=== PATIENT | male | born 1955 | race Caucasian/White ===

== ENCOUNTER → 2020-04-01 | Outpatient (REF) | payer BC | LOC: M LAB REF 17:36 | PROVIDERS: ATTEND Podiatrist Foot & Ankle Surgery | DX: L03.115 Cellulitis of right lower limb (principal) ==

== ENCOUNTER → 2020-04-27 | Outpatient (CLI) | payer BC ==
--- NOTE | 2020-05-14 15:12 | REP ---
BILATERAL LOWER EXTREMITY ARTERIAL ULTRASOUND CLINICAL: Diabetic ulcers. TECHNIQUE: Real-time lynch scale and color Doppler evaluation using linear high frequency transducer. FINDINGS: Examination is somewhat limited due to body habitus and significant distal lower extremity swelling bilaterally. The right lower extremity demonstrates triphasic wave patterns to the level of the tibioperoneal trunk followed by monophasic wave patterns through the posterior tibial and anterior tibial arteries along with high diastolic flow suggesting changes related to inflammatory disease/infectious process. There is no evidence for stenosis or occlusion through the right lower extremity. The left lower extremity demonstrates triphasic wave patterns along with 2:1 stenosis in the distal posterior tibial artery. VELOCITY CHART BILATERAL LOWER EXTREMITIES RIGHT (cm/s) LEFT (cm/s) Common femoral artery 125.6 162.9 Profunda 67.7 64.5 Proximal SFA 101.7 124.0 Mid SFA 97.2 99.1 Distal SFA 102.7 81.9 Popliteal artery 115.7 97.5 Proximal SHARMAINE 56.9 87.5 Tibioperoneal trunk 86.1 104.8 Proximal [employer] 48.0 29.1 Distal [employer] 28.9 64.3 Distal SHARMAINE 68.9 45.2 IMPRESSION: * Mild atheromatous changes along with significant lower extremity swelling possibly due to underlying infectious/inflammatory process. 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 MTDD
== END ==
LOC: M RAD 11:30
PROVIDERS: ATTEND Surgery
DX: E11.621 Type 2 diabetes mellitus with foot ulcer (principal); E11.610 Type 2 diabetes mellitus with diabetic neuropathic arthropathy; L97.412 Non-pressure chronic ulcer of right heel and midfoot with fat layer exposed

== ENCOUNTER 2020-11-19 10:27 | Emergency (ER) | payer BC ==
[~2020-11-19] VITALS: Ht 182.9 cm; Wt 195.4 kg
[2020-11-19] MEDS ORDERED: BOOSTRIX/ADACEL VACCINE (DIPHTH/PERTUSS/ACELL/TETANUS) 0.5ML SYR IM ONE (11:50)
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
[2020-11-19] MEDS ORDERED: DERMABOND TOPICAL SKIN ADHESIVE TOP ONE (12:50)
[2020-11-19] MEDS ORDERED: VICT18IN SC (12:51)
[2020-11-19] MEDS ORDERED: FLOM0.4C39 PO (12:51)
[2020-11-19] MEDS ORDERED: METF10004 PO (12:51)
[2020-11-19] MEDS ORDERED: LISI20TA35 PO (12:51)
[2020-11-19] MEDS ORDERED: METO50TA7 PO (12:51)
[2020-11-19] MEDS ORDERED: PRIL20TA2 PO (12:51)
[2020-11-19] MEDS ORDERED: GABA-845 PO (12:51)
[2020-11-19] MEDS ORDERED: SING10TA32 PO (12:51)
[2020-11-19] MEDS ORDERED: GABA600T4 PO (12:51)
[2020-11-19 13:08] VITALS: BP 138/78
== END 2020-11-19 13:10 | disposition home or self-care (01) ==
LOC: M ED 10:27
DX: S91.312A Laceration without foreign body, left foot, initial encounter (principal); W26.0XXA Contact with knife, initial encounter; Y92.89 Other specified places as the place of occurrence of the external cause; I10 Essential (primary) hypertension; E11.9 Type 2 diabetes mellitus without complications; E78.5 Hyperlipidemia, unspecified; G47.33 Obstructive sleep apnea (adult) (pediatric); Z79.899 Other long term (current) drug therapy; Z79.84 Long term (current) use of oral hypoglycemic drugs

== ENCOUNTER → 2022-03-16 | Outpatient (REF) | payer MEDICARE, BC ==
[~2022-03-16] MED LIST: FLOM0.4C39 PO; GABA-283 PO; GABA600T4 PO; LISI20TA35 PO; METF10004 PO; METO50TA7 PO; PRIL20TA2 PO; SING10TA32 PO; VICT18IN SC
== END ==
LOC: M SFHCWOUN 17:20
PROVIDERS: ATTEND Surgery
DX: T25.231A Burn of second degree of right toe(s) (nail), initial encounter (principal); Y92.9 Unspecified place or not applicable; Y93.9 Activity, unspecified; Y99.9 Unspecified external cause status

== ENCOUNTER → 2022-05-08 | Outpatient (CLI) | payer MEDICARE, BC | LOC: M RAD 11:51 | PROVIDERS: ATTEND Surgery | DX: L97.512 Non-pressure chronic ulcer of other part of right foot with fat layer exposed (principal); L97.522 Non-pressure chronic ulcer of other part of left foot with fat layer exposed ==

== ENCOUNTER → 2022-08-31 | Outpatient (REF) | payer MEDICARE, BC ==
[~2022-08-31] MED LIST changes: +MONT-5 PO; -SING10TA32 PO
== END ==
LOC: M SFHCWOUN 12:38
PROVIDERS: ATTEND Surgery
DX: D49.2 Neoplasm of unspecified behavior of bone, soft tissue, and skin (principal)

== ENCOUNTER → 2023-02-15 | Outpatient (REF) | payer MEDICARE, BC | LOC: M SFHCWOUN 12:26 | PROVIDERS: ATTEND Surgery | DX: C44.729 Squamous cell carcinoma of skin of left lower limb, including hip (principal) ==

== ENCOUNTER → 2023-07-26 | Outpatient (REF) | payer MEDICARE, BC ==
[~2023-07-26] MED LIST changes: -GABA-283 PO; +GABA-284 PO
== END ==
LOC: M SFHCWOUN 18:01
PROVIDERS: ATTEND Physician Assistant
DX: D04.71 Carcinoma in situ of skin of right lower limb, including hip (principal)

== ENCOUNTER → 2023-07-27 | Outpatient (CLI) | payer MEDICARE, BC | LOC: M RAD 11:36 | PROVIDERS: ATTEND Internal Medicine | DX: L02.416 Cutaneous abscess of left lower limb (principal) ==

== ENCOUNTER → 2023-08-09 | Outpatient (REF) | payer MEDICARE, BC | LOC: M SFHCWOUN 17:22 | PROVIDERS: ATTEND Physician Assistant | DX: L97.522 Non-pressure chronic ulcer of other part of left foot with fat layer exposed (principal) ==

== ENCOUNTER → 2023-08-14 | Outpatient (REF) | payer MEDICARE, BC | LOC: M SFHCDERM 17:35 | PROVIDERS: ATTEND Dermatology | DX: C44.729 Squamous cell carcinoma of skin of left lower limb, including hip (principal) ==

== ENCOUNTER → 2023-08-22 | Outpatient (REF) | payer MEDICARE, BC | LOC: M SFHCDERM 17:18 | PROVIDERS: ATTEND Dermatology | DX: Z51.89 Encounter for other specified aftercare (principal) ==

== ENCOUNTER → 2023-08-31 | Outpatient (REF) | payer MEDICARE, BC | LOC: M SFHCDERM 14:25 | PROVIDERS: ATTEND Dermatology | DX: T14.90XD Injury, unspecified, subsequent encounter (principal) ==

== ENCOUNTER → 2023-09-14 | Outpatient (CLI) | payer MEDICARE, BC | LOC: M RAD 13:05 | PROVIDERS: ATTEND Physician Assistant | DX: L97.512 Non-pressure chronic ulcer of other part of right foot with fat layer exposed (principal); L97.822 Non-pressure chronic ulcer of other part of left lower leg with fat layer exposed; R68.89 Other general symptoms and signs ==

== ENCOUNTER → 2023-10-11 | Outpatient (REF) | payer MEDICARE, BC | LOC: M SFHCDERM 13:36 | PROVIDERS: ATTEND Physician Assistant | DX: L82.1 Other seborrheic keratosis (principal) ==

== ENCOUNTER → 2023-10-19 | Outpatient (CLI) | payer MEDICARE, BC | LOC: M WUC 11:32 | PROVIDERS: ATTEND Physician Assistant | DX: L97.522 Non-pressure chronic ulcer of other part of left foot with fat layer exposed (principal); M19.072 Primary osteoarthritis, left ankle and foot; M77.8 Other enthesopathies, not elsewhere classified ==

== ENCOUNTER 2023-10-24 15:51 | Emergency (ER) | payer MEDICARE, BC ==
[~2023-10-24] VITALS: Ht 182.9 cm; Wt 164.5 kg
[2023-10-24 15:51] VITALS: BP 141/74; TEMP 97.8; O2SAT 98
[2023-10-25] MEDS ORDERED: FINA5TAB2 PO (10:27)
[2023-10-25] MEDS ORDERED: AUGM125S2 PO (10:27)
[2023-10-25] MEDS ORDERED: DULO1CAP6 PO (10:27)
[2023-10-25] MEDS ORDERED: NORV5TAB PO (10:27)
[2023-10-25] MEDS ORDERED: SEMA1PEN2 SQ (10:27)
[2023-10-25] MEDS ORDERED: OMEP-173 PO (12:40)
[2023-10-25] MEDS ORDERED: METO1TAB7 PO (12:40)
[2023-10-25] MEDS ORDERED: AMOX875T2 PO (12:47)
[2023-10-25] MEDS ORDERED: IBUP200T46 PO (12:47)
[2023-10-25] MEDS ORDERED: VENTAER INH (12:47)
[2023-10-25] MEDS ORDERED: ARTIDRO4 OU (12:47)
[2023-10-25] MEDS ORDERED: FLUT50SP33 (12:47)
== END 2023-10-24 17:17 | disposition left against medical advice (07) ==
LOC: M ED 15:51
DX: Z53.21 Procedure and treatment not carried out due to patient leaving prior to being seen by health care provider (principal)

== ENCOUNTER 2023-10-25 10:10 | Observation (INO) | payer MEDICARE, BC ==
[~2023-10-25] VITALS: Ht 182.9 cm; Wt 166.4 kg
[~2023-10-25 10:10] MED LIST changes: -AMOX875T2 PO; -ARTIDRO4 OU; -AUGM125S2 PO; -CEFA500C2 PO; -DULO1CAP6 PO; -FINA5TAB2 PO; -FLUT50SP33; -IBUP200T46 PO; -METO1TAB7 PO; -NORV5TAB PO; -OMEP-173 PO; -PROBCAP14 PO; -SEMA1PEN2 SQ; -VENTAER INH
[2023-10-25] MEDS ORDERED: AUGM125S2 PO (10:27)
[2023-10-25] MEDS ORDERED: NORV5TAB PO (10:27)
[2023-10-25] MEDS ORDERED: DULO1CAP6 PO (10:27)
[2023-10-25] MEDS ORDERED: SEMA1PEN2 SQ (10:27)
[2023-10-25] MEDS ORDERED: FINA5TAB2 PO (10:27)
[2023-10-25] MEDS ORDERED: VANCOMYCIN HCL 2,000 MG in D5W 500 ML IV ONE (11:30)
[2023-10-25] MEDS ORDERED: MED REC IN PROGRESS XX SCH (11:55)
[2023-10-25] MEDS: VANCOMYCIN HCL 1,000 MG, VIAL MATE ADAPTER 1 EACH in D5W 250 ML IV ONE ×2 (12:33)
[2023-10-25] MEDS: BOOSTRIX VACCINE (TETANUS/DIPHTH/ACEL. PERTUSSIS) 0.5ML SYR IM.IMMUN ONE (12:33)
[2023-10-25] MEDS ORDERED: OMEP-173 PO (12:40)
[2023-10-25] MEDS ORDERED: METO1TAB7 PO (12:40)
[2023-10-25] MEDS ORDERED: ARTIDRO4 OU (12:47)
[2023-10-25] MEDS ORDERED: IBUP200T46 PO (12:47)
[2023-10-25] MEDS ORDERED: VENTAER INH (12:47)
[2023-10-25] MEDS ORDERED: AMOX875T2 PO (12:47)
[2023-10-25] MEDS ORDERED: FLUT50SP33 (12:47)
[2023-10-25 12:48] LABS: BASO % 0.1 % (0.0-1.0); EOS % 0.1 % (0.0-3.0); HEMATOCRIT 30.4 % (42.0-52.0); HEMOGLOBIN 9.7 g/dl (13.5-17.5); LYMPH # 1.3 10^3/uL (1.5-5.0); LYMPH % 17.9 % (24.0-44.0); MEAN CORPUSCULAR HEMOGLOBIN 30.1 pg (27.0-33.0); MEAN CORPUSCULAR HGB CONC 31.9 g/dl (32.0-36.5); MEAN CORPUSCULAR VOLUME 94.4 fl (80.0-96.0); MONO # 1.6 10^3/uL (0.0-0.8); MONO % 23.4 % (2.0-8.0); NEUTROPHILS % 56.8 % (36.0-66.0); PLATELET COUNT, AUTOMATED 192 10^3/uL (150-450); RED BLOOD COUNT 3.22 10^6/uL (4.30-6.10)
[2023-10-25] MEDS ORDERED: HOME MED LIST COMPLETE! XX SCH (12:50)
[2023-10-25 13:01] LABS: INR 1.24; PROTHROMBIN TIME 15.2 SECONDS (12.5-14.5)
[2023-10-25 13:02] LABS: ERYTHROCYTE SEDIMENTATION RATE 76 mm/hr (0-20)
[2023-10-25 13:11] LABS: ALBUMIN 2.1 G/DL (3.2-5.2); ALKALINE PHOSPHATASE 86 U/L (46-116); ALT/SGPT 17 U/L (7.0-40); AST/SGOT 22 U/L (<34); BILIRUBIN,DIRECT 0.4 MG/DL (<0.4); BILIRUBIN,TOTAL 0.7 MG/DL (0.3-1.2); BLOOD UREA NITROGEN 21 MG/DL (9-23); CALCIUM LEVEL 7.9 MG/DL (8.3-10.6); CARBON DIOXIDE LEVEL 29 MMOL/L (20-31); CHLORIDE LEVEL 98 MMOL/L (98-107); CREATININE FOR GFR 0.72 MG/DL (0.70-1.30); GLOMERULAR FILTRATION RATE > 60.0 (>49); GLUCOSE, FASTING 111 MG/DL (74-106); POTASSIUM SERUM 3.9 MMOL/L (3.5-5.1); SODIUM LEVEL 133 MMOL/L (136-145); TOTAL PROTEIN 7.5 G/DL (5.7-8.2)
[2023-10-25 13:17] LABS: PROCALCITONIN 0.19 ng/ml
[2023-10-25 13:29] LABS: RSV AMPLIFICATION NEGATIVE (NEGATIVE)
[2023-10-25] MEDS ORDERED: VANCOMYCIN HCL 1,000 MG, VIAL MATE ADAPTER 1 EACH in D5W 250 ML IV SCH (14:00)
[2023-10-25 15:40] VITALS: BP 109/61; TEMP 97.5; O2SAT 96
[2023-10-25] MEDS: GABAPENTIN 300 MG CAP PO SCH (16:12)
[2023-10-25] MEDS ORDERED: GLUCAGON INJ 1MG VIAL SC PRN (17:35)
[2023-10-25] MEDS ORDERED: GLUCOSE 4GM CHEW TABLET PO PRN (17:35)
[2023-10-25] MEDS ORDERED: DEXTROSE 50% 50ML SYRINGE IV PRN (17:35)
[2023-10-25 20:28] VITALS: BP 98/51; TEMP 98.1; O2SAT 96
[2023-10-25] MEDS: INSULIN LISPRO (NovoLOG) PER UNIT SC SCH (20:54)
[2023-10-25] MEDS ORDERED: amLODIPine 5 MG TAB PO SCH (21:00)
[2023-10-25] MEDS: MONTELUKAST 10 MG TAB PO SCH (21:03)
[2023-10-25] MEDS: VANCOMYCIN HCL 1,000 MG, VIAL MATE ADAPTER 1 EACH in D5W 250 ML IV SCH (21:03)
[2023-10-25] MEDS: DOCUSATE SODIUM 100MG CAPSULE PO SCH (21:03)
[2023-10-25] MEDS: NS 1,000 ML IV SCH (21:03)
[2023-10-25] MEDS: TAMSULOSIN 0.4 MG CAP PO SCH (21:03)
[2023-10-25 22:00] VITALS: O2SAT 93
[2023-10-25 23:00] VITALS: BP 108/62
[2023-10-26] VITALS (8 sets, daily range): BP systolic 119–151; BP diastolic 55–76; TEMP 97–98.1; O2SAT 91–98
[2023-10-26 06:35] LABS: BASO % 0.2 % (0.0-1.0); EOS % 0.4 % (0.0-3.0); HEMATOCRIT 30.1 % (42.0-52.0); HEMOGLOBIN 9.9 g/dl (13.5-17.5); LYMPH # 1.3 10^3/uL (1.5-5.0); LYMPH % 25.5 % (24.0-44.0); MEAN CORPUSCULAR HGB CONC 32.9 g/dl (32.0-36.5); MEAN CORPUSCULAR VOLUME 94.4 fl (80.0-96.0); MONO # 0.9 10^3/uL (0.0-0.8); MONO % 17.7 % (2.0-8.0); NEUTROPHILS # 2.8 10^3/uL (1.5-8.5); NEUTROPHILS % 54.1 % (36.0-66.0); PLATELET COUNT, AUTOMATED 201 10^3/uL (150-450); RED BLOOD COUNT 3.19 10^6/uL (4.30-6.10); WHITE BLOOD COUNT 5.1 10^3/uL (4.0-10.0)
[2023-10-26 06:53] LABS: BLOOD UREA NITROGEN 18 MG/DL (9-23); CALCIUM LEVEL 7.6 MG/DL (8.3-10.6); CARBON DIOXIDE LEVEL 28 MMOL/L (20-31); CHLORIDE LEVEL 101 MMOL/L (98-107); CREATININE FOR GFR 0.66 MG/DL (0.70-1.30); GLOMERULAR FILTRATION RATE > 60.0 (>49); GLUCOSE, FASTING 97 MG/DL (74-106); POTASSIUM SERUM 4.2 MMOL/L (3.5-5.1); SODIUM LEVEL 133 MMOL/L (136-145)
[2023-10-26] MEDS: INSULIN LISPRO (NovoLOG) PER UNIT SC SCH (07:23)
[2023-10-26] MEDS: FINASTERIDE 5MG TAB PO SCH (07:55)
[2023-10-26] MEDS: OMEPRAZOLE 20MG CAP PO SCH (07:55)
[2023-10-26] MEDS: DULoxetine 30MG CAPSULE (CYMBALTA) PO SCH (07:56)
[2023-10-26] MEDS ORDERED: fentaNYL 100 MCG/2 ML INJECTION As Ordered ONE (11:51)
[2023-10-26] MEDS ORDERED: LIDOCAINE 2% 100MG/5ML SDV (FOR ANES.) As Ordered ONE (11:51)
[2023-10-26] MEDS ORDERED: MIDAZOLAM INJ 2MG/2ML VIAL As Ordered ONE (11:51)
[2023-10-26] MEDS ORDERED: propofoL 200 MG/20 ML VIAL As Ordered ONE (11:51)
[2023-10-26] MEDS: LIDOCAINE 1% MDV 20ML VIAL As Ordered ONE (13:00)
[2023-10-26] MEDS ORDERED: PERCOCET 5MG/325MG TAB PO PRN (18:25)
[2023-10-26] MEDS: cefTRIAXone SOD 2 GM in D5W MINI-BAG PLUS 50 ML IV SCH (20:52)
[2023-10-26] MEDS: VANCOMYCIN HCL 750 MG, VIAL MATE ADAPTER 1 EACH in D5W 250 ML IV SCH ×2 (21:00→23:23)
[2023-10-27 02:00] VITALS: BP 134/65; TEMP 98.2; O2SAT 91
[2023-10-27 05:13] VITALS: BP 130/68; TEMP 97.9; O2SAT 94
[2023-10-27 07:02] LABS: BASO % 0.2 % (0.0-1.0); EOS % 0.9 % (0.0-3.0); HEMATOCRIT 30.3 % (42.0-52.0); HEMOGLOBIN 9.7 g/dl (13.5-17.5); LYMPH # 1.2 10^3/uL (1.5-5.0); LYMPH % 26.3 % (24.0-44.0); MEAN CORPUSCULAR HEMOGLOBIN 30.6 pg (27.0-33.0); MEAN CORPUSCULAR VOLUME 95.6 fl (80.0-96.0); MONO # 0.9 10^3/uL (0.0-0.8); MONO % 20.3 % (2.0-8.0); NEUTROPHILS # 2.2 10^3/uL (1.5-8.5); NEUTROPHILS % 47.8 % (36.0-66.0); PLATELET COUNT, AUTOMATED 180 10^3/uL (150-450); RED BLOOD COUNT 3.17 10^6/uL (4.30-6.10); WHITE BLOOD COUNT 4.5 10^3/uL (4.0-10.0)
[2023-10-27 07:09] LABS: BLOOD UREA NITROGEN 14 MG/DL (9-23); CALCIUM LEVEL 7.6 MG/DL (8.3-10.6); CARBON DIOXIDE LEVEL 28 MMOL/L (20-31); CHLORIDE LEVEL 99 MMOL/L (98-107); CREATININE FOR GFR 0.63 MG/DL (0.70-1.30); GLOMERULAR FILTRATION RATE > 60.0 (>49); GLUCOSE, FASTING 128 MG/DL (74-106); POTASSIUM SERUM 3.9 MMOL/L (3.5-5.1); SODIUM LEVEL 132 MMOL/L (136-145)
[2023-10-27 10:00] VITALS: BP 151/81; TEMP 97.7; O2SAT 91
[2023-10-27] MEDS: METOPROLOL SUCC (TopROL XL) 50MG **XL** TAB PO SCH (13:39)
[2023-10-27] MEDS: VANCOMYCIN HCL 1,000 MG, VIAL MATE ADAPTER 1 EACH in D5W 250 ML IV SCH (13:40)
[2023-10-27 14:00] VITALS: BP 119/53; TEMP 97.3; O2SAT 90
[2023-10-27] MEDS: amLODIPine 5 MG TAB PO SCH (21:40)
[2023-10-27 21:54] VITALS: BP 127/68; TEMP 97.7; O2SAT 95
[2023-10-28 05:16] VITALS: BP 132/72; TEMP 97.8; O2SAT 95
[2023-10-28 06:46] LABS: BASO % 0.4 % (0.0-1.0); EOS # 0.1 10^3/uL (0.0-0.5); HEMATOCRIT 31.4 % (42.0-52.0); HEMOGLOBIN 9.8 g/dl (13.5-17.5); LYMPH # 1.3 10^3/uL (1.5-5.0); LYMPH % 29.3 % (24.0-44.0); MEAN CORPUSCULAR HGB CONC 31.2 g/dl (32.0-36.5); MONO # 0.9 10^3/uL (0.0-0.8); NEUTROPHILS % 44.4 % (36.0-66.0); PLATELET COUNT, AUTOMATED 182 10^3/uL (150-450); RED BLOOD COUNT 3.27 10^6/uL (4.30-6.10); WHITE BLOOD COUNT 4.5 10^3/uL (4.0-10.0)
[2023-10-28 07:05] LABS: BLOOD UREA NITROGEN 15 MG/DL (9-23); CALCIUM LEVEL 7.9 MG/DL (8.3-10.6); CARBON DIOXIDE LEVEL 29 MMOL/L (20-31); CHLORIDE LEVEL 102 MMOL/L (98-107); GLOMERULAR FILTRATION RATE > 60.0 (>49); GLUCOSE, FASTING 124 MG/DL (74-106); SODIUM LEVEL 136 MMOL/L (136-145)
[2023-10-28] MEDS: ceFAZolin SOD 2 GM in IV 1 EA IV SCH (08:16)
[2023-10-28 14:00] VITALS: BP 120/68; TEMP 97.9; O2SAT 98
[2023-10-28 21:21] VITALS: BP 133/68; TEMP 97.9; O2SAT 95
[2023-10-29 05:51] VITALS: BP 134/70; TEMP 97.3; O2SAT 92
[2023-10-29 06:30] LABS: HEMATOCRIT 34.7 % (42.0-52.0); HEMOGLOBIN 10.9 g/dl (13.5-17.5); MEAN CORPUSCULAR HEMOGLOBIN 30.1 pg (27.0-33.0); MEAN CORPUSCULAR HGB CONC 31.4 g/dl (32.0-36.5); MEAN CORPUSCULAR VOLUME 95.9 fl (80.0-96.0); PLATELET COUNT, AUTOMATED 262 10^3/uL (150-450); RED BLOOD COUNT 3.62 10^6/uL (4.30-6.10); WHITE BLOOD COUNT 5.3 10^3/uL (4.0-10.0)
[2023-10-29 06:58] LABS: BLOOD UREA NITROGEN 15 MG/DL (9-23); CALCIUM LEVEL 8.1 MG/DL (8.3-10.6); CARBON DIOXIDE LEVEL 30 MMOL/L (20-31); CHLORIDE LEVEL 100 MMOL/L (98-107); GLOMERULAR FILTRATION RATE > 60.0 (>49); GLUCOSE, FASTING 105 MG/DL (74-106); POTASSIUM SERUM 4.2 MMOL/L (3.5-5.1); SODIUM LEVEL 135 MMOL/L (136-145)
[2023-10-29 07:04] LABS: ATYPICAL LYMPH 4 % (0-5); EOSINOPHILS 1 % (0-3); LYMPHOCYTES 33 % (16-44); METAMYELOCYTES 2 % (0-0); MONOCYTES 12 % (0-5); NEUTROPHILS 48 % (28-66); PLATELET ESTIMATE NORMAL (NORMAL)
[2023-10-29 07:05] LABS: ANISOCYTOSIS 1+; SPHEROCYTES 1+
[2023-10-29 07:06] LABS: HYPERSEGMENTED POLYS 1+
[2023-10-29 08:21] VITALS: BP 160/88
[2023-10-29] MEDS ORDERED: CEFA500C2 PO (12:43)
[2023-10-29] MEDS ORDERED: PROBCAP14 PO (12:44)
== END 2023-10-29 14:35 | disposition home or self-care (01) ==
LOC: M ED 10:10 → M ED INP 10:11 → ENRESERV 14:48 → M MSPAV 15:38
PROVIDERS: ADMIT Internal Medicine Nephrology; ATTEND Internal Medicine Nephrology
DX: S61.001A Unspecified open wound of right thumb without damage to nail, initial encounter (principal); A49.01 Methicillin susceptible Staphylococcus aureus infection, unspecified site; X58.XXXA Exposure to other specified factors, initial encounter; Y92.89 Other specified places as the place of occurrence of the external cause; Y93.89 Activity, other specified; Y99.8 Other external cause status; R00.1 Bradycardia, unspecified; I44.0 Atrioventricular block, first degree; I10 Essential (primary) hypertension; E78.5 Hyperlipidemia, unspecified; E11.42 Type 2 diabetes mellitus with diabetic polyneuropathy; G47.30 Sleep apnea, unspecified; E66.01 Morbid (severe) obesity due to excess calories; Z68.42 Body mass index [BMI] 45.0-49.9, adult; E11.618 Type 2 diabetes mellitus with other diabetic arthropathy; Z87.891 Personal history of nicotine dependence; Z96.653 Presence of artificial knee joint, bilateral; Z85.828 Personal history of other malignant neoplasm of skin; Z84.0 Family history of diseases of the skin and subcutaneous tissue; Z82.0 Family history of epilepsy and other diseases of the nervous system; Z88.8 Allergy status to other drugs, medicaments and biological substances; Z79.899 Other long term (current) drug therapy; Z79.85 Long-term (current) use of injectable non-insulin antidiabetic drugs; Z99.3 Dependence on wheelchair; Z23 Encounter for immunization; L03.011 Cellulitis of right finger
CPT/HCPCS: 10060; 11042; 11044; 36415; 73130; 80048; 80076; 80202; 83605; 84145; 85025; 85610; 85652; 86140; 87040; 87070; 87075; 87077; 87186; 87205; 87631; 90471; 90715; 93005; 96365; 96366; 96367; 96375; 96376; 99284; G0378; J0665; J0690; J0696; J1815; J2250; J3010; J3370

== ENCOUNTER → 2023-10-25 | Outpatient (REF) | payer MEDICARE, BC ==
[~2023-10-25] MED LIST changes: +AMOX875T2 PO; +ARTIDRO4 OU; +AUGM125S2 PO; +CEFA500C2 PO; +DULO1CAP6 PO; +FINA5TAB2 PO; +FLUT50SP33; +IBUP200T46 PO; +METO1TAB7 PO; +NORV5TAB PO; +OMEP-173 PO; +PROBCAP14 PO; +SEMA1PEN2 SQ; +VENTAER INH
== END ==
LOC: M SFHCWOUN 16:10
PROVIDERS: ATTEND Physician Assistant
DX: L03.011 Cellulitis of right finger (principal)

== ENCOUNTER → 2023-11-01 | Outpatient (CLI) | payer MEDICARE, BC ==
[~2023-11-01] MED LIST changes: +AMOX875T2 PO; +ARTIDRO4 OU; +AUGM125S2 PO; +CEFA500C2 PO; +DULO1CAP6 PO; +FINA5TAB2 PO; +FLUT50SP33; +IBUP200T46 PO; +METO1TAB7 PO; +NORV5TAB PO; +OMEP-173 PO; +PROBCAP14 PO; +SEMA1PEN2 SQ; +VENTAER INH
== END ==
LOC: M SOG 11:21
PROVIDERS: ATTEND Physician Assistant
DX: L03.011 Cellulitis of right finger (principal)

== ENCOUNTER → 2024-01-08 | Day surgery (SDC) | payer MEDICARE, BC ==
[~2024-01-08] VITALS: Ht 180.3 cm; Wt 162.8 kg
[~2024-01-08] MED LIST changes: +IMIQ5CRE8 TOP; +NS 1,000 ML IV ONE; +OXYB10TA23 PO
[2024-01-08 07:22] VITALS: BP 197/95; TEMP 96.9; O2SAT 95
== END | disposition home or self-care (01) ==
LOC: M OPP 07:16
PROVIDERS: ATTEND Internal Medicine Gastroenterology
DX: R12 Heartburn (principal); Z53.8 Procedure and treatment not carried out for other reasons

== ENCOUNTER → 2024-01-21 | Outpatient (CLI) | payer MEDICARE, BC ==
[~2024-01-21] MED LIST changes: -NS 1,000 ML IV ONE
== END ==
LOC: M WUC 14:26
PROVIDERS: ATTEND Internal Medicine
DX: I51.7 Cardiomegaly (principal); R05.9 Cough, unspecified

== ENCOUNTER 2024-03-18 11:56 | Day surgery (SDC) | payer MEDICARE, BC ==
[~2024-03-18] VITALS: Ht 180.3 cm; Wt 166.5 kg
[~2024-03-18 11:56] MED LIST changes: +ACET1TAB55 PO; +META28.32 PO; +NS 1,000 ML IV ONE
[2024-03-18] MEDS ORDERED: LIDOCAINE 2% 100MG/5ML SDV (FOR ANES.) As Ordered ONE (13:15)
[2024-03-18] MEDS ORDERED: propofoL 200 MG/20 ML VIAL As Ordered ONE (13:15)
[2024-03-18] MEDS ORDERED: fentaNYL 100 MCG/2 ML INJECTION As Ordered ONE (13:35)
[2024-03-18 14:14] VITALS: TEMP 97.1
[2024-03-18 14:25] VITALS: BP 124/65; O2SAT 95
== END 2024-03-18 14:30 | disposition home or self-care (01) ==
LOC: M OPP 11:56
PROVIDERS: ATTEND Internal Medicine Gastroenterology
DX: K22.70 Barrett's esophagus without dysplasia (principal); K31.A19 Gastric intestinal metaplasia without dysplasia, unspecified site; R12 Heartburn; E11.9 Type 2 diabetes mellitus without complications; G47.30 Sleep apnea, unspecified; I10 Essential (primary) hypertension; F17.200 Nicotine dependence, unspecified, uncomplicated; Z79.1 Long term (current) use of non-steroidal anti-inflammatories (NSAID); Z79.85 Long-term (current) use of injectable non-insulin antidiabetic drugs; Z79.810 Long term (current) use of selective estrogen receptor modulators (SERMs); Z79.891 Long term (current) use of opiate analgesic; Z79.899 Other long term (current) drug therapy
CPT/HCPCS: 43239; 88305; J3010

== ENCOUNTER → 2024-04-07 | Outpatient (CLI) | payer MEDICARE, BC ==
[~2024-04-07] MED LIST changes: -NS 1,000 ML IV ONE
== END ==
LOC: M PLARAD 13:19
PROVIDERS: ATTEND Dermatology
DX: C44.391 Other specified malignant neoplasm of skin of nose (principal)
CPT/HCPCS: 78816; A9552

== ENCOUNTER → 2024-08-07 | Outpatient (REF) | payer MEDICARE, BC ==
[~2024-08-07] MED LIST changes: +GABA-1490 PO; -GABA600T4 PO
== END ==
LOC: M SFHCDERM 16:49
PROVIDERS: ATTEND Physician Assistant
DX: L03.90 Cellulitis, unspecified (principal)

== ENCOUNTER 2024-09-15 12:03 | Inpatient (IN) | payer MEDICARE, BC ==
[~2024-09-15] VITALS: Ht 180.3 cm; Wt 149.0 kg
[2024-09-15] MEDS ORDERED: VIBE75TA PO (12:19)
[2024-09-15] MEDS: ACETAMINOPHEN 500 MG TAB PO ONE (12:34)
[2024-09-15 12:43] LABS: BASO # 0.1 10^3/uL (0.0-0.2); BASO % 0.3 % (0.0-1.0); EOS % 0.1 % (0.0-3.0); HEMATOCRIT 29.9 % (42.0-52.0); HEMOGLOBIN 9.6 g/dl (13.5-17.5); LYMPH # 0.7 10^3/uL (1.5-5.0); LYMPH % 2.7 % (24.0-44.0); MEAN CORPUSCULAR HEMOGLOBIN 31.4 pg (27.0-33.0); MEAN CORPUSCULAR HGB CONC 32.1 g/dl (32.0-36.5); MEAN CORPUSCULAR VOLUME 97.7 fl (80.0-96.0); MONO % 11.1 % (2.0-8.0); NEUTROPHILS # 22.2 10^3/uL (1.5-8.5); NEUTROPHILS % 82.3 % (36.0-66.0); PLATELET COUNT, AUTOMATED 191 10^3/uL (150-450); RED BLOOD COUNT 3.06 10^6/uL (4.30-6.10); WHITE BLOOD COUNT 26.9 10^3/uL (4.0-10.0)
[2024-09-15 13:09] LABS: BILIRUBIN,DIRECT 1.8 MG/DL (<0.4); BILIRUBIN,TOTAL 2.5 MG/DL (0.3-1.2); CALCIUM LEVEL 7.5 MG/DL (8.3-10.6); CREATININE FOR GFR 1.37 MG/DL (0.70-1.30); POTASSIUM SERUM 4.7 MMOL/L (3.5-5.1); TOTAL PROTEIN 7.6 G/DL (5.7-8.2)
[2024-09-15 13:20] LABS: PROCALCITONIN 3.89 ng/ml
[2024-09-15 13:40] LABS: C REACTIVE PROTEIN QUANTITATIV 29.04 MG/DL (<1.0)
[2024-09-15] MEDS: PIPERACILLIN/TAZOBACTAM SOD 4.5 GM in DEXTROSE 5% (D5W) ADV/MINI-BAG 50 ML IV ONE (14:18)
[2024-09-15] MEDS: NS (Normal Saline) 0.9% 1,000 ML IV SCH ×2 (14:18→20:56)
[2024-09-15] MEDS ORDERED: [UNRECOGNIZED DRUG - CODE] PO (14:26)
[2024-09-15] MEDS ORDERED: SM N0.65 NARES (14:26)
[2024-09-15] MEDS ORDERED: HOME MED LIST COMPLETE! XX SCH (14:30)
[2024-09-15 14:59] LABS: KETONE, URINE AUTO RFX NEGATIVE (NEGATIVE); LEUKOCYTE ESTERASE UR AUTO RFX NEGATIVE (NEGATIVE); MUCUS, URINE RFX SMALL (NEGATIVE); NITRITE, URINE AUTO RFX NEGATIVE (NEGATIVE); RBC, URINE AUTO RFX 54 /HPF (0-3); SQUAM EPITHELIAL CELL UR AURFX 1 /HPF (0-6); WBC, URINE AUTO RFX 3 /HPF (0-3)
[2024-09-15] MEDS: VANCOMYCIN HCL 1,000 MG, VIAL MATE ADAPTER 1 EACH in NS 250 ML IV ONE (16:31)
[2024-09-15] MEDS ORDERED: KETAMINE HCL 200MG/20ML VIAL As Ordered ONE (16:54)
[2024-09-15] MEDS ORDERED: MIDAZOLAM INJ 2MG/2ML VIAL As Ordered ONE (16:54)
[2024-09-15] MEDS ORDERED: propofoL 200 MG/20 ML VIAL As Ordered ONE (16:54)
[2024-09-15] MEDS ORDERED: LIDOCAINE 2% 100MG/5ML SDV (FOR ANES.) As Ordered ONE (16:54)
[2024-09-15] MEDS ORDERED: fentaNYL 100 MCG/2 ML INJECTION As Ordered ONE (16:55)
[2024-09-15] MEDS ORDERED: ONDANSETRON 4MG 2ML VIAL As Ordered ONE (16:55)
[2024-09-15] MEDS ORDERED: ACETAMINOPHEN 325 MG TAB PO ONE (17:00)
[2024-09-15] MEDS ORDERED: MOM 30ML SUSPENSION UDC PO PRN (17:30)
[2024-09-15] MEDS ORDERED: VANCOMYCIN HCL 1,000 MG, VIAL MATE ADAPTER 1 EACH in NS 250 ML IV SCH (17:35)
[2024-09-15] MEDS ORDERED: SODIUM CHLORIDE NASAL 0.65% SPRAY BTL (OCEAN) PRN (17:50)
[2024-09-15] MEDS ORDERED: ACETAMINOPHEN 325 MG TAB PO PRN (17:50)
[2024-09-15] MEDS ORDERED: GLUCAGON INJ 1MG VIAL SC PRN (18:00)
[2024-09-15] MEDS ORDERED: INSULIN LISPRO (NovoLOG) PER UNIT SC SCH ×2 (18:00→19:35)
[2024-09-15] MEDS ORDERED: PERCOCET 5MG/325MG TAB PO PRN (18:00)
[2024-09-15] MEDS ORDERED: DEXTROSE 50% 50ML SYRINGE IV PRN (18:00)
[2024-09-15] MEDS ORDERED: GLUCOSE 4 GM CHEW PO PRN (18:00)
[2024-09-15] MEDS: LIDOCAINE 1% MDV 20ML VIAL As Ordered ONE (18:36)
[2024-09-15] MEDS ORDERED: MEPERIDINE 25 MG/ML 1ML VIAL As Ordered ONE (19:51)
[2024-09-15] MEDS: MEPERIDINE 25 MG/ML 1ML VIAL IV PRN (19:53)
[2024-09-15 20:27] VITALS: BP 136/96; TEMP 98.3; O2SAT 96
[2024-09-15] MEDS: INSULIN LISPRO (NovoLOG) PER UNIT SC SCH (21:00)
[2024-09-15] MEDS: PERCOCET 5MG/325MG TAB PO PRN (21:06)
[2024-09-15] MEDS: PIPERACILLIN/TAZOBACTAM SOD 3.375 GM in DEXTROSE 5% (D5W) ADV/MINI-BAG 50 ML IV SCH (21:13)
[2024-09-15] MEDS: GABAPENTIN 300 MG CAP PO SCH (21:14)
[2024-09-15] MEDS: oxyBUTYnin *DITROPAN XL* 5 MG TABCR PO SCH (21:14)
[2024-09-15] MEDS: MONTELUKAST 10 MG TAB PO SCH (21:14)
[2024-09-15] MEDS: DOCUSATE SODIUM 100MG CAPSULE PO SCH (21:14)
[2024-09-15] MEDS: NS (Normal Saline) 0.9% 1,000 ML IV ONE (22:00)
[2024-09-15] MEDS: CLINDAMYCIN 900 MG in IV 1 EA IV SCH (23:32)
[2024-09-15 23:44] VITALS: BP 123/59; TEMP 101.1; O2SAT 96
[2024-09-15] MEDS: ACETAMINOPHEN 325 MG TAB PO PRN (23:52)
[2024-09-16] VITALS (20 sets, daily range): BP systolic 108–144; BP diastolic 51–76; TEMP 97.4–98.3; O2SAT 85–100
[2024-09-16] MEDS: VANCOMYCIN HCL 1,000 MG, VIAL MATE ADAPTER 1 EACH in NS 250 ML IV ONE (00:56)
[2024-09-16 07:04] LABS: BASO # 0.1 10^3/uL (0.0-0.2); BASO % 0.5 % (0.0-1.0); EOS # 0.4 10^3/uL (0.0-0.5); EOS % 1.3 % (0.0-3.0); HEMATOCRIT 28.1 % (42.0-52.0); HEMOGLOBIN 8.6 g/dl (13.5-17.5); LYMPH # 1.4 10^3/uL (1.5-5.0); LYMPH % 4.7 % (24.0-44.0); MEAN CORPUSCULAR HEMOGLOBIN 30.6 pg (27.0-33.0); MEAN CORPUSCULAR HGB CONC 30.6 g/dl (32.0-36.5); NEUTROPHILS # 22.4 10^3/uL (1.5-8.5); NEUTROPHILS % 77.7 % (36.0-66.0); PLATELET COUNT, AUTOMATED 177 10^3/uL (150-450); RED BLOOD COUNT 2.81 10^6/uL (4.30-6.10); WHITE BLOOD COUNT 28.9 10^3/uL (4.0-10.0)
[2024-09-16 07:18] LABS: MONO # 3.5 10^3/uL (0.0-0.8)
[2024-09-16] MEDS: INSULIN LISPRO (NovoLOG) PER UNIT SC SCH (07:30)
[2024-09-16 07:59] LABS: VANCOMYCIN RANDOM 13.3 UG/ML
[2024-09-16 08:00] LABS: ALBUMIN 1.8 G/DL (3.2-5.2); BILIRUBIN,TOTAL 2.3 MG/DL (0.3-1.2); CALCIUM LEVEL 7.1 MG/DL (8.3-10.6); CREATININE FOR GFR 1.7 MG/DL (0.70-1.30); GLOMERULAR FILTRATION RATE 42.9 (>49); MAGNESIUM LEVEL 1.8 MG/DL (1.8-2.4); POTASSIUM SERUM 4.8 MMOL/L (3.5-5.1)
[2024-09-16] MEDS ORDERED: VANCOMYCIN HCL 1,500 MG, VIAL MATE ADAPTER 1 EACH in NS 500 ML IV SCH (08:00)
[2024-09-16] MEDS: VANCOMYCIN HCL 1,000 MG, VIAL MATE ADAPTER 1 EACH in NS 250 ML IV SCH (08:20)
[2024-09-16] MEDS: OMEPRAZOLE 20MG CAP PO SCH (08:21)
[2024-09-16] MEDS: METAMUCIL (PSYLLIUM) PACKET PO SCH (08:21)
[2024-09-16] MEDS ORDERED: HYDROMORPHONE HCL 0.5 MG/ 0.5 ML SYRINGE IV PRN (09:45)
[2024-09-16] MEDS ORDERED: CEFEPIME HCL 1 GM in DEXTROSE 5% (D5W) ADV/MINI-BAG 50 ML IV SCH (09:45)
[2024-09-16 11:25] LABS: ANTI-STREPTOLYSIN O QUANT 55.7 IU/ML (<195)
[2024-09-16] MEDS: CEFEPIME HCL 2 GM in DEXTROSE 5% (D5W) ADV/MINI-BAG 50 ML IV SCH (12:33)
[2024-09-16] MEDS: HYDROMORPHONE HCL 0.5 MG/ 0.5 ML SYRINGE IV PRN ×2 (12:49→23:53)
[2024-09-16] MEDS: BOOSTRIX VACCINE (TETANUS/DIPHTH/ACEL. PERTUSSIS) 0.5ML SYR IM ONE (20:54)
[2024-09-17] VITALS (42 sets, daily range): BP systolic 95–138; BP diastolic 51–64; TEMP 97–99.6; O2SAT 91–99
[2024-09-17 06:16] LABS: HEMATOCRIT 29.9 % (42.0-52.0); HEMOGLOBIN 9.2 g/dl (13.5-17.5); MEAN CORPUSCULAR HEMOGLOBIN 31.2 pg (27.0-33.0); MEAN CORPUSCULAR HGB CONC 30.8 g/dl (32.0-36.5); MEAN CORPUSCULAR VOLUME 101.4 fl (80.0-96.0); PLATELET COUNT, AUTOMATED 173 10^3/uL (150-450); RED BLOOD COUNT 2.95 10^6/uL (4.30-6.10); WHITE BLOOD COUNT 29.7 10^3/uL (4.0-10.0)
[2024-09-17 06:38] LABS: ALBUMIN 1.7 G/DL (3.2-5.2); BILIRUBIN,TOTAL 2.3 MG/DL (0.3-1.2); CALCIUM LEVEL 7.4 MG/DL (8.3-10.6); GLOMERULAR FILTRATION RATE 35.5 (>49); POTASSIUM SERUM 4.9 MMOL/L (3.5-5.1); TOTAL PROTEIN 7.3 G/DL (5.7-8.2)
[2024-09-17 06:54] LABS: C REACTIVE PROTEIN QUANTITATIV 34.88 MG/DL (<1.0)
[2024-09-17 07:15] LABS: BLAST CELLS 1 % (0-0); LYMPHOCYTES 3 % (16-44); MONOCYTES 5 % (0-5); NEUTROPHILS 91 % (28-66)
[2024-09-17 07:21] LABS: ANISOCYTOSIS 1+; PLATELET ESTIMATE NORMAL (NORMAL); POLYCHROMASIA 1+
[2024-09-17 08:50] LABS: ABG BASE EXCESS -4.3 (-2.0-2.0); ABG HCO3 22.7 MMOL/L (22.0-26.0); ABG O2 SATURATION 95.6 % (95.0-99.0); ABG PARTIAL PRESSURE CO2 50.3 mmHg (35.0-45.0); ABG PARTIAL PRESSURE O2 87.6 mmHg (75.0-100.0); ABG STANDARD HCO3 20.8 MMOL/L. (22.0-26.0); ABG TOTAL CO2 24.2 MMOL/L (23.0-31.0); ABG pH (ARTERIAL) 7.272 UNITS (7.350-7.450)
[2024-09-17] MEDS: FUROSEMIDE 100MG/10ML VIAL IV SCH (10:12)
[2024-09-17] MEDS: INSULIN LISPRO (NovoLOG) PER UNIT SC SCH (12:00)
[2024-09-17 12:38] LABS: ABG BASE EXCESS -5.6 (-2.0-2.0); ABG HCO3 21.4 MMOL/L (22.0-26.0); ABG O2 SATURATION 92.6 % (95.0-99.0); ABG PARTIAL PRESSURE CO2 48.9 mmHg (35.0-45.0); ABG PARTIAL PRESSURE O2 70.5 mmHg (75.0-100.0); ABG STANDARD HCO3 19.8 MMOL/L. (22.0-26.0); ABG TOTAL CO2 22.9 MMOL/L (23.0-31.0); ABG pH (ARTERIAL) 7.258 UNITS (7.350-7.450)
[2024-09-17] MEDS ORDERED: ETOMIDATE INJ 20MG/10ML VIAL As Ordered ONE (13:44)
[2024-09-17] MEDS ORDERED: ROCURONIUM BROMIDE 50MG/5ML VIAL As Ordered ONE (13:46)
[2024-09-17] MEDS ORDERED: SUCCINYLCHOLINE 100MG/5ML SYRINGE As Ordered ONE (13:46)
[2024-09-17] MEDS ORDERED: SUGAMMADEX SODIUM 500 MG/5 ML VIAL (BRIDION) As Ordered ONE (13:47)
[2024-09-17] MEDS ORDERED: PHENYLEPHRINE 10MG/ML 1ML VIAL As Ordered ONE (14:34)
[2024-09-17] MEDS: CLINDAMYCIN 900MG/50ML PREMIX BAG As Ordered ONE (14:58)
[2024-09-17] MEDS: CEFEPIME 1GM VIAL (MAXIPIME) As Ordered ONE (15:00)
[2024-09-17] MEDS ORDERED: ACETAMINOPHEN 1000MG/100ML IV BAG As Ordered ONE (15:37)
[2024-09-17] MEDS ORDERED: INSULIN LISPRO (NovoLOG) PER UNIT SC PRN (17:00)
[2024-09-17] MEDS ORDERED: PHENYLephrine 500MCG 5ML (100MCG/ML) SYRINGE IV PRN (17:00)
[2024-09-17] MEDS ORDERED: oxyCODONE 5MG TAB PO PRN (17:00)
[2024-09-17] MEDS ORDERED: HYDROMORPHONE HCL 0.5 MG/ 0.5 ML SYRINGE IV PRN (17:00)
[2024-09-17] MEDS ORDERED: ONDANSETRON 4MG 2ML VIAL IV PRN (17:00)
[2024-09-17] MEDS: PHENYLEPHRINE HCL INJ 10 MG in D5W 100 ML IV SCH (17:00)
[2024-09-17] MEDS ORDERED: GLUCAGON INJ 1MG VIAL SC PRN (17:00)
[2024-09-17] MEDS ORDERED: fentaNYL 100 MCG/2 ML INJECTION IV PRN (17:00)
[2024-09-17] MEDS ORDERED: GLUCOSE 4 GM CHEW PO PRN (17:00)
[2024-09-17] MEDS ORDERED: DEXTROSE 50% 50ML SYRINGE IV PRN (17:00)
[2024-09-17] MEDS: propofoL 1,000 MG in IV 1 EA IV SCH ×2 (17:10→20:35)
[2024-09-17 17:29] LABS: ABG BASE EXCESS -9.3 (-2.0-2.0); ABG HCO3 18.6 MMOL/L (22.0-26.0); ABG O2 SATURATION 98.5 % (95.0-99.0); ABG PARTIAL PRESSURE CO2 49.4 mmHg (35.0-45.0); ABG PARTIAL PRESSURE O2 148.5 mmHg (75.0-100.0); ABG TOTAL CO2 20.1 MMOL/L (23.0-31.0)
[2024-09-17 17:30] LABS: ABG pH (ARTERIAL) 7.193 UNITS (7.350-7.450)
[2024-09-17] MEDS ORDERED: FENTANYL DRIP LOCK BOX KEY 1 EACH XX PRN (18:25)
[2024-09-17] MEDS: CEFEPIME HCL 2 GM in DEXTROSE 5% (D5W) ADV/MINI-BAG 50 ML IV SCH (18:43)
[2024-09-17] MEDS: LR 1,000 ML IV SCH (18:43)
[2024-09-17] MEDS: fentaNYL CITRATE/NaCl 1,000 MCG in IV 1 EA IV SCH (20:39)
[2024-09-18] VITALS (41 sets, daily range): BP systolic 86–129; BP diastolic 49–72; TEMP 98.2–99.5; O2SAT 92–97
[2024-09-18 05:41] LABS: HEMATOCRIT 26.7 % (42.0-52.0); HEMOGLOBIN 8.2 g/dl (13.5-17.5); MEAN CORPUSCULAR HEMOGLOBIN 31.3 pg (27.0-33.0); MEAN CORPUSCULAR HGB CONC 30.7 g/dl (32.0-36.5); MEAN CORPUSCULAR VOLUME 101.9 fl (80.0-96.0); PLATELET COUNT, AUTOMATED 193 10^3/uL (150-450); RED BLOOD COUNT 2.62 10^6/uL (4.30-6.10); WHITE BLOOD COUNT 10.9 10^3/uL (4.0-10.0)
[2024-09-18 05:53] LABS: CALCIUM LEVEL 7.5 MG/DL (8.3-10.6); CREATININE FOR GFR 2.75 MG/DL (0.70-1.30); GLOMERULAR FILTRATION RATE 24.6 (>49); POTASSIUM SERUM 5.2 MMOL/L (3.5-5.1)
[2024-09-18 06:02] LABS: ATYPICAL LYMPH 1 % (0-5); LYMPHOCYTES 13 % (16-44); MONOCYTES 8 % (0-5); MYELOCYTES 1 % (0-0); NEUTROPHILS 77 % (28-66)
[2024-09-18 06:04] LABS: ANISOCYTOSIS 4+; HYPOCHROMASIA 1+
[2024-09-18 06:06] LABS: PLATELET ESTIMATE NORMAL (NORMAL)
[2024-09-18 06:16] LABS: C REACTIVE PROTEIN QUANTITATIV 31.38 MG/DL (<1.0)
[2024-09-18 08:47] LABS: ABG BASE EXCESS -9.1 (-2.0-2.0); ABG HCO3 19.3 MMOL/L (22.0-26.0); ABG O2 SATURATION 98.1 % (95.0-99.0); ABG PARTIAL PRESSURE CO2 54.8 mmHg (35.0-45.0); ABG STANDARD HCO3 17.1 MMOL/L. (22.0-26.0)
[2024-09-18 08:50] LABS: ABG pH (ARTERIAL) 7.165 UNITS (7.350-7.450)
[2024-09-18] MEDS: FUROSEMIDE 100MG/10ML VIAL IV SCH (09:00)
[2024-09-18] MEDS ORDERED: VANCOMYCIN HCL 1,000 MG, VIAL MATE ADAPTER 1 EACH in NS 250 ML IV SCH (09:00)
[2024-09-18] MEDS: CHLOROTHIAZIDE 500MG VIAL IV ONE ×2 (09:34→16:53)
[2024-09-18] MEDS: PANTOPRAZOLE 40MG VIAL IV SCH (09:44)
[2024-09-18 09:56] LABS: HEMATOCRIT 27.3 % (42.0-52.0); HEMOGLOBIN 8.3 g/dl (13.5-17.5); MEAN CORPUSCULAR HGB CONC 30.4 g/dl (32.0-36.5); MEAN CORPUSCULAR VOLUME 101.9 fl (80.0-96.0); PLATELET COUNT, AUTOMATED 168 10^3/uL (150-450); RED BLOOD COUNT 2.68 10^6/uL (4.30-6.10); WHITE BLOOD COUNT 10.7 10^3/uL (4.0-10.0)
[2024-09-18 10:22] LABS: ABG BASE EXCESS -6.2 (-2.0-2.0); ABG HCO3 21.2 MMOL/L (22.0-26.0); ABG O2 SATURATION 98.6 % (95.0-99.0); ABG PARTIAL PRESSURE CO2 51.9 mmHg (35.0-45.0); ABG PARTIAL PRESSURE O2 125.9 mmHg (75.0-100.0); ABG STANDARD HCO3 19.3 MMOL/L. (22.0-26.0); ABG TOTAL CO2 22.8 MMOL/L (23.0-31.0)
[2024-09-18 10:26] LABS: ABG pH (ARTERIAL) 7.229 UNITS (7.350-7.450)
[2024-09-18 13:00] LABS: CALCIUM LEVEL 7.2 MG/DL (8.3-10.6); CREATININE FOR GFR 2.58 MG/DL (0.70-1.30); GLOMERULAR FILTRATION RATE 26.5 (>49); POTASSIUM SERUM 5.3 MMOL/L (3.5-5.1)
[2024-09-18] MEDS: HEPARIN SOD (PORCINE) 5000UNITS/ML 1ML VIAL/SYRINGE SQ SCH (13:17)
[2024-09-18] MEDS: PATIROMER SORBITEX CALCIUM 8.4 GM POWDER PACKET (VELTASSA) PO ONE ×2 (13:17→17:55)
[2024-09-18] MEDS: PIPERACILLIN/TAZOBACTAM SOD 2.25 GM in DEXTROSE 5% (D5W) ADV/MINI-BAG 50 ML IV SCH (20:30)
[2024-09-19] VITALS (30 sets, daily range): BP systolic 100–146; BP diastolic 58–81; TEMP 98.2–100.5; O2SAT 94–98
[2024-09-19] MEDS: ACETAMINOPHEN *IV* 1,000 MG in IV 1 EA IV ONE (03:32)
[2024-09-19] MEDS: NS 500 ML IV ONE (03:34)
[2024-09-19 05:14] LABS: HEMATOCRIT 25.5 % (42.0-52.0); HEMOGLOBIN 8.3 g/dl (13.5-17.5); MEAN CORPUSCULAR HEMOGLOBIN 31.4 pg (27.0-33.0); MEAN CORPUSCULAR HGB CONC 32.5 g/dl (32.0-36.5); MEAN CORPUSCULAR VOLUME 96.6 fl (80.0-96.0); PLATELET COUNT, AUTOMATED 198 10^3/uL (150-450); RED BLOOD COUNT 2.64 10^6/uL (4.30-6.10); WHITE BLOOD COUNT 8.6 10^3/uL (4.0-10.0)
[2024-09-19 05:48] LABS: ABG O2 SATURATION 98.9 % (95.0-99.0); ABG PARTIAL PRESSURE CO2 46.4 mmHg (35.0-45.0); ABG PARTIAL PRESSURE O2 140.2 mmHg (75.0-100.0); ABG STANDARD HCO3 22.8 MMOL/L. (22.0-26.0); ABG TOTAL CO2 25.4 MMOL/L (23.0-31.0); ABG pH (ARTERIAL) 7.331 UNITS (7.350-7.450)
[2024-09-19 05:52] LABS: ALBUMIN 1.4 G/DL (3.2-5.2); BILIRUBIN,TOTAL 2.1 MG/DL (0.3-1.2); CALCIUM LEVEL 9.3 MG/DL (8.3-10.6); CREATININE FOR GFR 2.41 MG/DL (0.70-1.30); GLOMERULAR FILTRATION RATE 28.7 (>49); MAGNESIUM LEVEL 2.5 MG/DL (1.8-2.4); POTASSIUM SERUM 4.7 MMOL/L (3.5-5.1); TOTAL PROTEIN 7.1 G/DL (5.7-8.2)
[2024-09-19 07:54] LABS: C REACTIVE PROTEIN QUANTITATIV 23.04 MG/DL (<1.0)
[2024-09-19] MEDS: AMIODARONE HCL 150 MG in IV 1 EA IV ONE (08:56)
[2024-09-19] MEDS: AMIODARONE HCL 360 MG in IV 1 EA IV SCH ×2 (09:09→14:45)
[2024-09-19] MEDS: SENNA 8.6 MG TAB (SENOKOT) PO SCH (10:34)
[2024-09-19] MEDS: PIPERACILLIN/TAZOBACTAM SOD 3.375 GM in DEXTROSE 5% (D5W) ADV/MINI-BAG 50 ML IV SCH (13:56)
[2024-09-20] VITALS (63 sets, daily range): BP systolic 91–172; BP diastolic 52–92; TEMP 97.2–99.3; O2SAT 94–100
[2024-09-20 04:53] LABS: HEMATOCRIT 26.2 % (42.0-52.0); HEMOGLOBIN 8.2 g/dl (13.5-17.5); MEAN CORPUSCULAR HEMOGLOBIN 30.8 pg (27.0-33.0); MEAN CORPUSCULAR HGB CONC 31.3 g/dl (32.0-36.5); MEAN CORPUSCULAR VOLUME 98.5 fl (80.0-96.0); PLATELET COUNT, AUTOMATED 233 10^3/uL (150-450); RED BLOOD COUNT 2.66 10^6/uL (4.30-6.10)
[2024-09-20 05:30] LABS: ALBUMIN 1.4 G/DL (3.2-5.2); BILIRUBIN,TOTAL 1.7 MG/DL (0.3-1.2); CREATININE FOR GFR 2.2 MG/DL (0.70-1.30); GLOMERULAR FILTRATION RATE 31.8 (>49); MAGNESIUM LEVEL 2.4 MG/DL (1.8-2.4); TOTAL PROTEIN 7.3 G/DL (5.7-8.2)
[2024-09-20 05:55] LABS: ABG BASE EXCESS 3.3 (-2.0-2.0); ABG HCO3 28.6 MMOL/L (22.0-26.0); ABG O2 SATURATION 98.4 % (95.0-99.0); ABG PARTIAL PRESSURE CO2 47.3 mmHg (35.0-45.0); ABG PARTIAL PRESSURE O2 141.3 mmHg (75.0-100.0); ABG STANDARD HCO3 27.4 MMOL/L. (22.0-26.0); ABG pH (ARTERIAL) 7.399 UNITS (7.350-7.450)
[2024-09-20] MEDS: dexmedeTOMidine 200 MCG in IV 1 EA IV SCH (09:24)
[2024-09-20] MEDS: MIDAZOLAM 100MG/100ML-0.9%NACL 100 MG in IV 1 EA IV SCH (13:08)
[2024-09-20] MEDS: FUROSEMIDE 100MG/10ML VIAL IV SCH (17:35)
[2024-09-20] MEDS: AMIODARONE 200 MG TAB (PACERONE) PO SCH (20:16)
[2024-09-20] MEDS: MIDAZOLAM INJ 2MG/2ML VIAL IV PRN (21:33)
[2024-09-21] VITALS (21 sets, daily range): BP systolic 116–165; BP diastolic 56–81; TEMP 98.2–99.7; O2SAT 92–100
[2024-09-21 04:56] LABS: HEMATOCRIT 26.6 % (42.0-52.0); HEMOGLOBIN 8.3 g/dl (13.5-17.5); MEAN CORPUSCULAR HEMOGLOBIN 30.9 pg (27.0-33.0); MEAN CORPUSCULAR HGB CONC 31.2 g/dl (32.0-36.5); MEAN CORPUSCULAR VOLUME 98.9 fl (80.0-96.0); PLATELET COUNT, AUTOMATED 286 10^3/uL (150-450); RED BLOOD COUNT 2.69 10^6/uL (4.30-6.10); WHITE BLOOD COUNT 8.7 10^3/uL (4.0-10.0)
[2024-09-21 05:27] LABS: ALBUMIN 1.5 G/DL (3.2-5.2); BILIRUBIN,TOTAL 1.6 MG/DL (0.3-1.2); CALCIUM LEVEL 7.6 MG/DL (8.3-10.6); CREATININE FOR GFR 2.09 MG/DL (0.70-1.30); GLOMERULAR FILTRATION RATE 33.8 (>49); MAGNESIUM LEVEL 2.5 MG/DL (1.8-2.4); PERCENT SATURATION 16.4 % (19.7-50.0); POTASSIUM SERUM 3.7 MMOL/L (3.5-5.1); TOTAL PROTEIN 7.6 G/DL (5.7-8.2)
[2024-09-21 06:19] LABS: ABG O2 SATURATION 93.5 % (95.0-99.0); ABG PARTIAL PRESSURE CO2 46.3 mmHg (35.0-45.0); ABG PARTIAL PRESSURE O2 77.9 mmHg (75.0-100.0); ABG TOTAL CO2 30.4 MMOL/L (23.0-31.0); ABG pH (ARTERIAL) 7.415 UNITS (7.350-7.450)
[2024-09-21] MEDS: MIRALAX *UNIT DOSE* 17GM PACKET PO SCH (08:57)
[2024-09-21] MEDS: LACTULOSE 20GM/30ML SYRUP UDC PO ONE (08:59)
[2024-09-21] MEDS: IPRATROPIUM 0.5MG/ALBUTEROL 2.5MG INH SOL UD 3ML (DUONEB) NEB ONE (09:03)
[2024-09-21] MEDS: FUROSEMIDE 20MG/2ML VIAL IV ONE (10:01)
[2024-09-21 19:36] LABS: ABG BASE EXCESS 7.9 (-2.0-2.0); ABG HCO3 33.2 MMOL/L (22.0-26.0); ABG O2 SATURATION 98.6 % (95.0-99.0); ABG PARTIAL PRESSURE CO2 51.1 mmHg (35.0-45.0); ABG PARTIAL PRESSURE O2 136.9 mmHg (75.0-100.0); ABG STANDARD HCO3 31.7 MMOL/L. (22.0-26.0); ABG TOTAL CO2 34.8 MMOL/L (23.0-31.0); ABG pH (ARTERIAL) 7.431 UNITS (7.350-7.450)
[2024-09-22] VITALS (25 sets, daily range): BP systolic 120–164; BP diastolic 57–79; TEMP 97.4–98.5; O2SAT 90–97
[2024-09-22] MEDS: KETOROLAC 30 MG/ML 1ML VIAL IV ONE (00:29)
[2024-09-22 01:18] LABS: GLOMERULAR FILTRATION RATE 35.5 (>49); MAGNESIUM LEVEL 2.4 MG/DL (1.8-2.4); POTASSIUM SERUM 3.8 MMOL/L (3.5-5.1)
[2024-09-22 04:46] LABS: HEMOGLOBIN 7.9 g/dl (13.5-17.5); MEAN CORPUSCULAR HGB CONC 30.4 g/dl (32.0-36.5); PLATELET COUNT, AUTOMATED 319 10^3/uL (150-450); RED BLOOD COUNT 2.55 10^6/uL (4.30-6.10); WHITE BLOOD COUNT 8.2 10^3/uL (4.0-10.0)
[2024-09-22 05:14] LABS: ALBUMIN 1.6 G/DL (3.2-5.2); BILIRUBIN,TOTAL 2.2 MG/DL (0.3-1.2); CALCIUM LEVEL 8.3 MG/DL (8.3-10.6); CREATININE FOR GFR 2.16 MG/DL (0.70-1.30); GLOMERULAR FILTRATION RATE 32.5 (>49); MAGNESIUM LEVEL 2.7 MG/DL (1.8-2.4); POTASSIUM SERUM 3.9 MMOL/L (3.5-5.1)
[2024-09-22] MEDS: D5W 1,000 ML IV SCH (07:29)
[2024-09-22 09:08] LABS: PROCALCITONIN 1.11 ng/ml
[2024-09-22] MEDS: ACETAMINOPHEN *IV* 1,000 MG in IV 1 EA IV ONE (11:20)
[2024-09-22] MEDS: GABAPENTIN 300 MG CAP PO SCH (14:03)
[2024-09-22 16:19] LABS: C REACTIVE PROTEIN QUANTITATIV 10.69 MG/DL (<1.0); CALCIUM LEVEL 8.2 MG/DL (8.3-10.6); CREATININE FOR GFR 1.95 MG/DL (0.70-1.30); GLOMERULAR FILTRATION RATE 36.6 (>49); POTASSIUM SERUM 3.8 MMOL/L (3.5-5.1)
[2024-09-23] VITALS (14 sets, daily range): BP systolic 123–158; BP diastolic 59–74; TEMP 97.4–98.6; O2SAT 90–97
[2024-09-23 05:29] LABS: HEMATOCRIT 26.4 % (42.0-52.0); MEAN CORPUSCULAR HEMOGLOBIN 30.7 pg (27.0-33.0); MEAN CORPUSCULAR HGB CONC 30.3 g/dl (32.0-36.5); MEAN CORPUSCULAR VOLUME 101.1 fl (80.0-96.0); PLATELET COUNT, AUTOMATED 364 10^3/uL (150-450); RED BLOOD COUNT 2.61 10^6/uL (4.30-6.10); WHITE BLOOD COUNT 6.9 10^3/uL (4.0-10.0)
[2024-09-23 06:17] LABS: ALBUMIN 1.6 G/DL (3.2-5.2); BILIRUBIN,TOTAL 2.7 MG/DL (0.3-1.2); CALCIUM LEVEL 8.4 MG/DL (8.3-10.6); CREATININE FOR GFR 1.69 MG/DL (0.70-1.30); GLOMERULAR FILTRATION RATE 43.2 (>49); POTASSIUM SERUM 3.7 MMOL/L (3.5-5.1); TOTAL PROTEIN 8.1 G/DL (5.7-8.2)
[2024-09-23 14:29] LABS: CALCIUM LEVEL 8.3 MG/DL (8.3-10.6); CREATININE FOR GFR 1.52 MG/DL (0.70-1.30); GLOMERULAR FILTRATION RATE 48.8 (>49); POTASSIUM SERUM 3.7 MMOL/L (3.5-5.1)
[2024-09-23 15:58] LABS: C REACTIVE PROTEIN QUANTITATIV 6.56 MG/DL (<1.0)
[2024-09-24] VITALS (10 sets, daily range): BP systolic 136–174; BP diastolic 63–74; TEMP 97.7–98.4; O2SAT 86–100
[2024-09-24 04:48] LABS: HEMATOCRIT 26.8 % (42.0-52.0); MEAN CORPUSCULAR HEMOGLOBIN 30.7 pg (27.0-33.0); MEAN CORPUSCULAR HGB CONC 29.9 g/dl (32.0-36.5); MEAN CORPUSCULAR VOLUME 102.7 fl (80.0-96.0); PLATELET COUNT, AUTOMATED 350 10^3/uL (150-450); RED BLOOD COUNT 2.61 10^6/uL (4.30-6.10); WHITE BLOOD COUNT 6.9 10^3/uL (4.0-10.0)
[2024-09-24 05:20] LABS: ALBUMIN 1.6 G/DL (3.2-5.2); BILIRUBIN,TOTAL 2.9 MG/DL (0.3-1.2); CALCIUM LEVEL 8.3 MG/DL (8.3-10.6); CREATININE FOR GFR 1.43 MG/DL (0.70-1.30); GLOMERULAR FILTRATION RATE 52.4 (>49); POTASSIUM SERUM 3.7 MMOL/L (3.5-5.1); TOTAL PROTEIN 8.1 G/DL (5.7-8.2)
[2024-09-24] MEDS ORDERED: GABA-1172 PO (16:07)
[2024-09-24] MEDS ORDERED: ACET32TAB PO (16:07)
[2024-09-24] MEDS ORDERED: INSULIN LISPRO (NovoLOG) PER UNIT SC SCH ×2 (17:30→21:00)
== END 2024-09-24 17:07 | DRG 853 ==
LOC: EDBD 12:03 → M ED 12:03 → M PCU 19:51 → M ICU 09-17 17:00
PROVIDERS: ADMIT Internal Medicine; ATTEND Internal Medicine Nephrology
PROC: 0LBW0ZZ Excision of Left Foot Tendon, Open Approach (ICD-10-PCS; principal; 2024-09-15 16:00)
PROC: 0Y6J0Z3 Detachment at Left Lower Leg, Low, Open Approach (ICD-10-PCS; 2024-09-17)
PROC: 5A1945Z Respiratory Ventilation, 24-96 Consecutive Hours (ICD-10-PCS; 2024-09-17)
DX: A41.89 Other specified sepsis (principal); M72.6 Necrotizing fasciitis; A48.0 Gas gangrene; G92.8 Other toxic encephalopathy; J96.01 Acute respiratory failure with hypoxia; J96.02 Acute respiratory failure with hypercapnia; N17.9 Acute kidney failure, unspecified; E87.4 Mixed disorder of acid-base balance; Z68.42 Body mass index [BMI] 45.0-49.9, adult; E87.0 Hyperosmolality and hypernatremia; I12.9 Hypertensive chronic kidney disease with stage 1 through stage 4 chronic kidney disease, or unspecified chronic kidney disease; E11.42 Type 2 diabetes mellitus with diabetic polyneuropathy; E11.610 Type 2 diabetes mellitus with diabetic neuropathic arthropathy; K22.70 Barrett's esophagus without dysplasia; I89.0 Lymphedema, not elsewhere classified; D53.9 Nutritional anemia, unspecified; E66.01 Morbid (severe) obesity due to excess calories; B96.4 Proteus (mirabilis) (morganii) as the cause of diseases classified elsewhere; E11.621 Type 2 diabetes mellitus with foot ulcer; L97.529 Non-pressure chronic ulcer of other part of left foot with unspecified severity; I48.91 Unspecified atrial fibrillation; K76.0 Fatty (change of) liver, not elsewhere classified; E87.5 Hyperkalemia; E87.70 Fluid overload, unspecified; N18.30 Chronic kidney disease, stage 3 unspecified; N32.81 Overactive bladder; N39.41 Urge incontinence; G47.33 Obstructive sleep apnea (adult) (pediatric); A63.0 Anogenital (venereal) warts; N40.1 Benign prostatic hyperplasia with lower urinary tract symptoms; Z79.899 Other long term (current) drug therapy; Z88.8 Allergy status to other drugs, medicaments and biological substances; Z85.828 Personal history of other malignant neoplasm of skin; Z96.653 Presence of artificial knee joint, bilateral

== ENCOUNTER 2024-09-24 14:58 | Inpatient (IN) | payer MEDICARE, BC ==
[~2024-09-24] VITALS: Ht 180.3 cm; Wt 151.0 kg
[~2024-09-24 14:58] MED LIST changes: +SM N0.65 NARES; +VIBE75TA PO; +[UNRECOGNIZED DRUG - CODE] PO
[2024-09-24] MEDS ORDERED: SIMETHICONE 80MG CHEW TAB PO PRN (15:25)
[2024-09-24] MEDS ORDERED: DEXTROSE 50% 50ML SYRINGE IV PRN (15:25)
[2024-09-24] MEDS ORDERED: BISACODYL 5MG TAB PO PRN (15:25)
[2024-09-24] MEDS ORDERED: GLUCAGON INJ 1MG VIAL SC PRN (15:25)
[2024-09-24] MEDS ORDERED: ONDANSETRON 4MG ORAL DISINTEGRATING TAB PO PRN (15:25)
[2024-09-24] MEDS ORDERED: MOM 30ML SUSPENSION UDC PO PRN (15:25)
[2024-09-24] MEDS ORDERED: BISACODYL 10MG SUPP PR PRN (15:25)
[2024-09-24] MEDS ORDERED: GLUCOSE 4 GM CHEW PO PRN (15:25)
[2024-09-24] MEDS ORDERED: SODIUM CHLORIDE NASAL 0.65% SPRAY BTL (OCEAN) PRN (15:25)
[2024-09-24] MEDS ORDERED: FLEET ENEMA PR PRN (15:25)
[2024-09-24] MEDS ORDERED: MAALOX 30 ML SUSP *UDC PO PRN (15:25)
[2024-09-24] MEDS ORDERED: GABA-1172 PO (16:07)
[2024-09-24] MEDS ORDERED: ACET32TAB PO (16:07)
[2024-09-24 17:20] VITALS: BP 139/71; TEMP 98; O2SAT 93
[2024-09-24] MEDS: INSULIN LISPRO (NovoLOG) PER UNIT SC SCH ×2 (17:30→20:38)
[2024-09-24] MEDS: GABAPENTIN 300 MG CAP PO SCH (18:29)
[2024-09-24] MEDS: D5W 1,000 ML IV SCH (18:29)
[2024-09-24 20:00] VITALS: BP 140/67; TEMP 98.3; O2SAT 100
[2024-09-24] MEDS: DOCUSATE SODIUM 100MG CAPSULE PO SCH (20:37)
[2024-09-24] MEDS: SENNA 8.6 MG TAB (SENOKOT) PO SCH (20:37)
[2024-09-24] MEDS: TAMSULOSIN 0.4 MG CAP PO SCH (20:43)
[2024-09-24] MEDS: PIPERACILLIN/TAZOBACTAM SOD 3.375 GM in DEXTROSE 5% (D5W) ADV/MINI-BAG 50 ML IV SCH (20:43)
[2024-09-24] MEDS: HEPARIN SOD (PORCINE) 5000UNITS/ML 1ML VIAL/SYRINGE SC SCH (20:43)
[2024-09-24] MEDS: MONTELUKAST 10 MG TAB PO SCH (20:44)
[2024-09-25] MEDS: ACETAMINOPHEN 325 MG TAB PO PRN (00:01)
[2024-09-25 04:00] VITALS: BP 132/75; TEMP 98.2; O2SAT 96
[2024-09-25 06:33] LABS: HEMATOCRIT 24.8 % (42.0-52.0); HEMOGLOBIN 7.7 g/dl (13.5-17.5); MEAN CORPUSCULAR HEMOGLOBIN 30.9 pg (27.0-33.0); MEAN CORPUSCULAR VOLUME 99.6 fl (80.0-96.0); PLATELET COUNT, AUTOMATED 310 10^3/uL (150-450); RED BLOOD COUNT 2.49 10^6/uL (4.30-6.10); WHITE BLOOD COUNT 5.6 10^3/uL (4.0-10.0)
[2024-09-25 06:59] LABS: ATYPICAL LYMPH 4 % (0-5); BASOPHILS 1 % (0-1); EOSINOPHILS 1 % (0-3); LYMPHOCYTES 23 % (16-44); METAMYELOCYTES 5 % (0-0); MONOCYTES 22 % (0-5); MYELOCYTES 3 % (0-0); NEUTROPHILS 39 % (28-66)
[2024-09-25 07:00] LABS: ANISOCYTOSIS 3+
[2024-09-25 07:01] LABS: HYPERSEGMENTED POLYS 1+; HYPOCHROMASIA 1+; PLATELET ESTIMATE NORMAL (NORMAL)
[2024-09-25 07:16] LABS: ALBUMIN 1.5 G/DL (3.2-5.2); ALKALINE PHOSPHATASE 83 U/L (40-129); ALT/SGPT 31 U/L (7.0-40); AST/SGOT 61 U/L (<34); BILIRUBIN,TOTAL 2.3 MG/DL (0.3-1.2); BLOOD UREA NITROGEN 46 MG/DL (9-23); CALCIUM LEVEL 8.1 MG/DL (8.3-10.6); CARBON DIOXIDE LEVEL 33 MMOL/L (20-31); CHLORIDE LEVEL 101 MMOL/L (98-107); GLOMERULAR FILTRATION RATE > 60.0 (>49); GLUCOSE, FASTING 138 MG/DL (74-106); POTASSIUM SERUM 3.7 MMOL/L (3.5-5.1); SODIUM LEVEL 140 MMOL/L (136-145); TOTAL PROTEIN 7.8 G/DL (5.7-8.2)
[2024-09-25] MEDS: METAMUCIL (PSYLLIUM) PACKET PO SCH (07:19)
[2024-09-25] MEDS: OMEPRAZOLE 20MG CAP PO SCH (07:26)
[2024-09-25] MEDS: MIRALAX *UNIT DOSE* 17GM PACKET PO SCH (07:52)
[2024-09-25 12:00] VITALS: BP 143/66; TEMP 98.1; O2SAT 95
[2024-09-25 19:47] VITALS: BP 141/65; TEMP 97.9; O2SAT 96
[2024-09-25] MEDS: RAMELTEON 8 MG TAB (ROZEREM) PO SCH (20:28)
[2024-09-25] MEDS: traMADol 50 MG TAB PO PRN (20:29)
[2024-09-25] MEDS: METHOCARBAMOL 1,000 MG/10 ML VIAL IV ONE (23:54)
[2024-09-26] MEDS: ACETAMINOPHEN *IV* 1,000 MG in IV 1 EA IV ONE (00:11)
[2024-09-26 05:51] VITALS: BP 125/58; TEMP 97.5; O2SAT 93
[2024-09-26 12:00] VITALS: BP 134/69; TEMP 96.7; O2SAT 95
[2024-09-26] MEDS: ACETAMINOPHEN 325 MG TAB PO SCH (19:00)
[2024-09-26 20:00] VITALS: BP 130/63; TEMP 98; O2SAT 92
[2024-09-26] MEDS: NITROFURANTOIN (MACROBID) 100 MG CAP PO SCH (21:55)
[2024-09-27 04:00] VITALS: BP 151/69; TEMP 97; O2SAT 96
[2024-09-27 12:00] VITALS: BP 136/65; TEMP 97.4; O2SAT 97
[2024-09-27 14:02] LABS: KETONE, URINE AUTO RFX NEGATIVE (NEGATIVE); LEUKOCYTE ESTERASE UR AUTO RFX NEGATIVE (NEGATIVE); MUCUS, URINE RFX SMALL (NEGATIVE); NITRITE, URINE AUTO RFX NEGATIVE (NEGATIVE); RBC, URINE AUTO RFX 7 /HPF (0-3); SQUAM EPITHELIAL CELL UR AURFX 0 /HPF (0-6); WBC, URINE AUTO RFX 2 /HPF (0-3)
[2024-09-27] MEDS: traMADol 50 MG TAB PO PRN (19:50)
[2024-09-27 20:00] VITALS: BP 141/71; TEMP 97; O2SAT 95
[2024-09-28] MEDS: methocarbamoL 750 MG TAB PO PRN (01:28)
[2024-09-28 04:00] VITALS: BP 143/67; TEMP 97.5; O2SAT 94
[2024-09-28 12:00] VITALS: BP 139/70; TEMP 97.5; O2SAT 88
[2024-09-28 13:37] VITALS: O2SAT 92
[2024-09-28 20:10] VITALS: BP 133/60; TEMP 97.3; O2SAT 94
[2024-09-29 04:03] VITALS: BP 151/68; TEMP 96.8; O2SAT 93
[2024-09-29 07:00] LABS: BASO % 0.7 % (0.0-1.0); EOS # 0.1 10^3/uL (0.0-0.5); EOS % 1.1 % (0.0-3.0); HEMATOCRIT 24.7 % (42.0-52.0); HEMOGLOBIN 7.7 g/dl (13.5-17.5); LYMPH # 1.5 10^3/uL (1.5-5.0); MEAN CORPUSCULAR HEMOGLOBIN 31.2 pg (27.0-33.0); MEAN CORPUSCULAR HGB CONC 31.2 g/dl (32.0-36.5); MONO # 1.1 10^3/uL (0.0-0.8); MONO % 25.2 % (2.0-8.0); NEUTROPHILS # 1.2 10^3/uL (1.5-8.5); NEUTROPHILS % 27.7 % (36.0-66.0); PLATELET COUNT, AUTOMATED 258 10^3/uL (150-450); RED BLOOD COUNT 2.47 10^6/uL (4.30-6.10); WHITE BLOOD COUNT 4.4 10^3/uL (4.0-10.0)
[2024-09-29 07:31] LABS: BLOOD UREA NITROGEN 22 MG/DL (9-23); CALCIUM LEVEL 8.4 MG/DL (8.3-10.6); CARBON DIOXIDE LEVEL 30 MMOL/L (20-31); CHLORIDE LEVEL 99 MMOL/L (98-107); CREATININE FOR GFR 0.96 MG/DL (0.70-1.30); GLOMERULAR FILTRATION RATE > 60.0 (>49); GLUCOSE, FASTING 115 MG/DL (74-106); POTASSIUM SERUM 3.6 MMOL/L (3.5-5.1); SODIUM LEVEL 137 MMOL/L (136-145)
[2024-09-29 11:52] VITALS: BP 159/75; TEMP 98.3; O2SAT 93
[2024-09-29] MEDS: GABAPENTIN 100 MG CAP PO ONE (12:16)
[2024-09-29] MEDS: GABAPENTIN 400MG CAP PO SCH (17:25)
[2024-09-29 19:45] VITALS: BP 139/72; TEMP 97.4; O2SAT 94
[2024-09-30 04:07] VITALS: BP 150/73; TEMP 97.2; O2SAT 95
[2024-09-30 12:00] VITALS: BP 142/74; TEMP 98; O2SAT 98
[2024-09-30 20:00] VITALS: BP 174/87; TEMP 97.2; O2SAT 94
[2024-09-30 20:30] VITALS: BP 142/68
[2024-09-30] MEDS: traZODone 50 MG TAB PO PRN (21:09)
[2024-09-30] MEDS: methocarbamoL 750 MG TAB PO PRN (21:09)
[2024-10-01 03:49] VITALS: BP 143/80; TEMP 96.4; O2SAT 97
[2024-10-01 04:00] VITALS: BP 138/62; TEMP 96.8; O2SAT 99
[2024-10-01 06:22] LABS: BASO # 0.1 10^3/uL (0.0-0.2); EOS # 0.1 10^3/uL (0.0-0.5); EOS % 2.3 % (0.0-3.0); HEMATOCRIT 24.6 % (42.0-52.0); HEMOGLOBIN 7.7 g/dl (13.5-17.5); LYMPH # 1.8 10^3/uL (1.5-5.0); LYMPH % 36.2 % (24.0-44.0); MEAN CORPUSCULAR HGB CONC 31.3 g/dl (32.0-36.5); MEAN CORPUSCULAR VOLUME 102.1 fl (80.0-96.0); MONO # 1.2 10^3/uL (0.0-0.8); NEUTROPHILS # 1.3 10^3/uL (1.5-8.5); PLATELET COUNT, AUTOMATED 249 10^3/uL (150-450); RED BLOOD COUNT 2.41 10^6/uL (4.30-6.10); WHITE BLOOD COUNT 4.8 10^3/uL (4.0-10.0)
[2024-10-01 06:43] LABS: BLOOD UREA NITROGEN 19 MG/DL (9-23); CALCIUM LEVEL 8.5 MG/DL (8.3-10.6); CARBON DIOXIDE LEVEL 30 MMOL/L (20-31); CHLORIDE LEVEL 103 MMOL/L (98-107); CREATININE FOR GFR 0.98 MG/DL (0.70-1.30); GLOMERULAR FILTRATION RATE > 60.0 (>49); GLUCOSE, FASTING 121 MG/DL (74-106); POTASSIUM SERUM 4.4 MMOL/L (3.5-5.1); SODIUM LEVEL 140 MMOL/L (136-145)
[2024-10-01 12:00] VITALS: BP 128/60; TEMP 97.9; O2SAT 97
[2024-10-01] MEDS: DULoxetine 30MG CAPSULE (CYMBALTA) PO ONE (12:43)
[2024-10-01] MEDS: ACETAMINOPHEN 500 MG TAB PO SCH (12:43)
[2024-10-01] MEDS: amLODIPine 5 MG TAB PO ONE (12:44)
[2024-10-01 14:29] LABS: ABG BASE EXCESS 3.5 (-2.0-2.0); ABG HCO3 27.9 MMOL/L (22.0-26.0); ABG O2 SATURATION 93.7 % (95.0-99.0); ABG PARTIAL PRESSURE CO2 41.3 mmHg (35.0-45.0); ABG PARTIAL PRESSURE O2 73.1 mmHg (75.0-100.0); ABG STANDARD HCO3 27.6 MMOL/L. (22.0-26.0); ABG TOTAL CO2 29.1 MMOL/L (23.0-31.0); ABG pH (ARTERIAL) 7.447 UNITS (7.350-7.450)
[2024-10-01 18:30] VITALS: BP 140/65; TEMP 97.1; O2SAT 92
[2024-10-01 20:00] VITALS: BP 141/71; TEMP 97; O2SAT 94
[2024-10-01] MEDS: methocarbamoL 500 MG TAB PO PRN (21:09)
[2024-10-01] MEDS: traZODone 50 MG TAB PO SCH (21:09)
[2024-10-02 04:00] VITALS: BP 168/73; TEMP 97; O2SAT 98
[2024-10-02] MEDS: amLODIPine 5 MG TAB PO SCH (08:54)
[2024-10-02] MEDS: DULoxetine 30MG CAPSULE (CYMBALTA) PO SCH (08:54)
[2024-10-02] MEDS: NYSTATIN 100,000 UNITS/GM TOPICAL PWD 15GM TOP SCH (09:00)
[2024-10-02 12:00] VITALS: BP 125/62; TEMP 98.1; O2SAT 94
[2024-10-02] MEDS ORDERED: NYSTATIN 100,000 UNITS/GM TOPICAL PWD 15GM TOP ONE (12:45)
[2024-10-02 20:00] VITALS: BP 133/71; TEMP 97.1; O2SAT 95
[2024-10-03 04:00] VITALS: BP 148/70; TEMP 96.8; O2SAT 94
[2024-10-03 07:01] LABS: BLOOD UREA NITROGEN 21 MG/DL (9-23); CALCIUM LEVEL 8.1 MG/DL (8.3-10.6); CARBON DIOXIDE LEVEL 29 MMOL/L (20-31); CHLORIDE LEVEL 101 MMOL/L (98-107); CREATININE FOR GFR 0.95 MG/DL (0.70-1.30); GLOMERULAR FILTRATION RATE > 60.0 (>49); GLUCOSE, FASTING 112 MG/DL (74-106); POTASSIUM SERUM 4.1 MMOL/L (3.5-5.1); SODIUM LEVEL 136 MMOL/L (136-145)
[2024-10-03 11:06] VITALS: O2SAT 94
[2024-10-03 12:05] VITALS: BP 134/63; TEMP 97.6; O2SAT 95
[2024-10-03] MEDS: GABAPENTIN 400MG CAP PO SCH (17:23)
[2024-10-03 19:42] VITALS: BP 129/59; TEMP 97.4; O2SAT 94
[2024-10-04 03:50] VITALS: BP 144/75; TEMP 96.9; O2SAT 97
[2024-10-04 12:00] VITALS: BP 165/70; TEMP 97.5; O2SAT 96
[2024-10-04 20:00] VITALS: BP 146/66; TEMP 97.9; O2SAT 95
[2024-10-05 04:00] VITALS: BP 144/64; TEMP 97.9; O2SAT 94
[2024-10-05 12:00] VITALS: BP 145/65; TEMP 97.4; O2SAT 98
[2024-10-05 20:11] VITALS: BP 136/75; TEMP 98.6; O2SAT 94
[2024-10-06 04:43] VITALS: BP 160/72; TEMP 95.8; O2SAT 94
[2024-10-06 05:37] VITALS: BP 144/74
[2024-10-06 07:20] LABS: BLOOD UREA NITROGEN 18 MG/DL (9-23); CALCIUM LEVEL 8.2 MG/DL (8.3-10.6); CARBON DIOXIDE LEVEL 29 MMOL/L (20-31); CHLORIDE LEVEL 101 MMOL/L (98-107); CREATININE FOR GFR 0.96 MG/DL (0.70-1.30); GLOMERULAR FILTRATION RATE > 60.0 (>49); GLUCOSE, FASTING 119 MG/DL (74-106); SODIUM LEVEL 137 MMOL/L (136-145)
[2024-10-06 07:57] VITALS: O2SAT 98
[2024-10-06] MEDS: MICONAZOLE TOPICAL 2% CREAM 15GM TOP SCH (09:00)
[2024-10-06 12:00] VITALS: BP 138/72; TEMP 97; O2SAT 98
[2024-10-06] MEDS ORDERED: MICONAZOLE TOPICAL 2% CREAM 15GM TOP ONE (12:15)
[2024-10-06] MEDS: METOPROLOL SUCC (TopROL XL) 50MG **XL** TAB PO ONE (15:05)
[2024-10-06 20:00] VITALS: BP 141/65; TEMP 97.3; O2SAT 94
[2024-10-07] MEDS: traZODone 50 MG TAB PO PRN (02:37)
[2024-10-07 04:00] VITALS: BP_SYST 132; BP_SYST 134; BP_SYST 141; BP_DIAS 65; BP_DIAS 74; BP_DIAS 83; TEMP 97.9; O2SAT 94
[2024-10-07] MEDS: METOPROLOL SUCC (TopROL XL) 50MG **XL** TAB PO SCH (08:08)
[2024-10-07 12:00] VITALS: BP 140/78; TEMP 97.9; O2SAT 95
[2024-10-07 20:00] VITALS: BP 121/60; TEMP 98.1; O2SAT 95
[2024-10-08 04:00] VITALS: BP 138/70; TEMP 98.1; O2SAT 96
[2024-10-08 12:00] VITALS: BP 134/68; TEMP 98.6; O2SAT 94
[2024-10-08] MEDS ORDERED: ACET-683 PO (14:43)
[2024-10-08] MEDS ORDERED: GABA-284 PO (14:43)
[2024-10-08] MEDS ORDERED: SENO8.6T5 PO (14:43)
[2024-10-08] MEDS ORDERED: METH-1164 PO (14:43)
[2024-10-08] MEDS ORDERED: INSUHUMDS SC ×2 (14:43)
[2024-10-08] MEDS ORDERED: TRAZ-252 PO ×2 (14:43)
[2024-10-08] MEDS ORDERED: COLA100C5 PO (14:43)
[2024-10-08] MEDS ORDERED: NYST10006 TOP (14:43)
[2024-10-08] MEDS ORDERED: CYMB1CAP5 PO (14:43)
[2024-10-08] MEDS ORDERED: MICO2CRE22 TOP (14:43)
[2024-10-08] MEDS ORDERED: HEPA500023 SC (14:43)
[2024-10-08 20:00] VITALS: BP 130/70; TEMP 97.8; O2SAT 95; O2SAT 96
[2024-10-09 04:00] VITALS: BP 141/62; TEMP 97.9; O2SAT 94
[2024-10-09 08:10] VITALS: BP 130/60
== END 2024-10-09 12:20 | DRG 872 ==
LOC: M PM&R 17:22
PROVIDERS: ADMIT Physical Medicine & Rehabilitation; ATTEND Physical Medicine & Rehabilitation
DX: A41.9 Sepsis, unspecified organism (principal); N17.9 Acute kidney failure, unspecified; E87.0 Hyperosmolality and hypernatremia; Z68.42 Body mass index [BMI] 45.0-49.9, adult; E11.42 Type 2 diabetes mellitus with diabetic polyneuropathy; K22.70 Barrett's esophagus without dysplasia; M14.671 Charcot's joint, right ankle and foot; K25.9 Gastric ulcer, unspecified as acute or chronic, without hemorrhage or perforation; E11.621 Type 2 diabetes mellitus with foot ulcer; I48.91 Unspecified atrial fibrillation; Z74.1 Need for assistance with personal care; Z74.09 Other reduced mobility; L97.519 Non-pressure chronic ulcer of other part of right foot with unspecified severity; E66.01 Morbid (severe) obesity due to excess calories; G54.6 Phantom limb syndrome with pain; D64.9 Anemia, unspecified; G47.33 Obstructive sleep apnea (adult) (pediatric); I12.9 Hypertensive chronic kidney disease with stage 1 through stage 4 chronic kidney disease, or unspecified chronic kidney disease; N18.30 Chronic kidney disease, stage 3 unspecified; E11.22 Type 2 diabetes mellitus with diabetic chronic kidney disease; N39.41 Urge incontinence; E11.43 Type 2 diabetes mellitus with diabetic autonomic (poly)neuropathy; N40.0 Benign prostatic hyperplasia without lower urinary tract symptoms; R13.11 Dysphagia, oral phase; G47.00 Insomnia, unspecified; Z89.512 Acquired absence of left leg below knee; Z85.828 Personal history of other malignant neoplasm of skin; Z79.899 Other long term (current) drug therapy; Z88.8 Allergy status to other drugs, medicaments and biological substances; Z48.01 Encounter for change or removal of surgical wound dressing

== ENCOUNTER → 2024-10-10 | Outpatient (REF) ==
[~2024-10-10] MED LIST changes: +ACET-683 PO; +ACET32TAB PO; +COLA100C5 PO; +CYMB1CAP5 PO; +GABA-1172 PO; +HEPA500023 SC; +INSUHUMDS SC; +METH-1164 PO; +MICO2CRE22 TOP; +NYST10006 TOP; +SENO8.6T5 PO; +TRAZ-252 PO
[2024-10-10 14:37] LABS: HEMATOCRIT 28.4 % (42.0-52.0); HEMOGLOBIN 8.8 g/dl (13.5-17.5); MEAN CORPUSCULAR HEMOGLOBIN 32.4 pg (27.0-33.0); MEAN CORPUSCULAR VOLUME 104.4 fl (80.0-96.0); PLATELET COUNT, AUTOMATED 145 10^3/uL (150-450); RED BLOOD COUNT 2.72 10^6/uL (4.30-6.10); WHITE BLOOD COUNT 2.5 10^3/uL (4.0-10.0)
[2024-10-10 14:59] LABS: BLOOD UREA NITROGEN 16 MG/DL (9-23); CALCIUM LEVEL 8.3 MG/DL (8.3-10.6); CARBON DIOXIDE LEVEL 30 MMOL/L (20-31); CHLORIDE LEVEL 100 MMOL/L (98-107); CREATININE FOR GFR 0.88 MG/DL (0.70-1.30); GLOMERULAR FILTRATION RATE > 60.0 (>49); GLUCOSE, FASTING 118 MG/DL (74-106); IRON (FE) 57 UG/DL (65-175); PERCENT SATURATION 20.9 % (19.7-50.0); POTASSIUM SERUM 4.1 MMOL/L (3.5-5.1); SODIUM LEVEL 137 MMOL/L (136-145); TOTAL IRON BINDING CAPACITY 273 UG/DL (250-425)
[2024-10-10 15:01] LABS: FERRITIN 226.8 NG/ML (10.5-307.3)
== END ==
PROVIDERS: ATTEND Internal Medicine
DX: D64.9 Anemia, unspecified (principal)

== ENCOUNTER → 2024-10-13 | Outpatient (REF) ==
[2024-10-13 11:46] LABS: HEMOGLOBIN 8.3 g/dl (13.5-17.5); MEAN CORPUSCULAR HEMOGLOBIN 32.3 pg (27.0-33.0); MEAN CORPUSCULAR HGB CONC 30.7 g/dl (32.0-36.5); MEAN CORPUSCULAR VOLUME 105.1 fl (80.0-96.0); PLATELET COUNT, AUTOMATED 163 10^3/uL (150-450); RED BLOOD COUNT 2.57 10^6/uL (4.30-6.10); WHITE BLOOD COUNT 3.1 10^3/uL (4.0-10.0)
[2024-10-13 12:22] LABS: BLOOD UREA NITROGEN 18 MG/DL (9-23); CALCIUM LEVEL 8.4 MG/DL (8.3-10.6); CARBON DIOXIDE LEVEL 31 MMOL/L (20-31); CHLORIDE LEVEL 97 MMOL/L (98-107); CREATININE FOR GFR 0.93 MG/DL (0.70-1.30); GLOMERULAR FILTRATION RATE > 60.0 (>49); GLUCOSE, FASTING 113 MG/DL (74-106); POTASSIUM SERUM 3.9 MMOL/L (3.5-5.1); SODIUM LEVEL 136 MMOL/L (136-145)
== END ==
PROVIDERS: ATTEND Internal Medicine
DX: Z02.2 Encounter for examination for admission to residential institution (principal); Z79.899 Other long term (current) drug therapy

== ENCOUNTER → 2024-10-15 | Outpatient (REF) | payer BC, MEDICARE | LOC: M SOG 07:50 → EDSTATUS 08:39 | PROVIDERS: ATTEND Physician Assistant | DX: Z89.512 Acquired absence of left leg below knee (principal) ==

== ENCOUNTER → 2024-10-20 | Outpatient (REF) ==
[2024-10-20 09:15] LABS: HEMATOCRIT 26.6 % (42.0-52.0); HEMOGLOBIN 8.4 g/dl (13.5-17.5); MEAN CORPUSCULAR HEMOGLOBIN 32.6 pg (27.0-33.0); MEAN CORPUSCULAR HGB CONC 31.6 g/dl (32.0-36.5); MEAN CORPUSCULAR VOLUME 103.1 fl (80.0-96.0); PLATELET COUNT, AUTOMATED 183 10^3/uL (150-450); RED BLOOD COUNT 2.58 10^6/uL (4.30-6.10); WHITE BLOOD COUNT 4.3 10^3/uL (4.0-10.0)
[2024-10-20 09:28] LABS: C REACTIVE PROTEIN QUANTITATIV 4.37 MG/DL (<1.0)
[2024-10-20 09:30] LABS: BLOOD UREA NITROGEN 16 MG/DL (9-23); CALCIUM LEVEL 8.3 MG/DL (8.3-10.6); CARBON DIOXIDE LEVEL 28 MMOL/L (20-31); CHLORIDE LEVEL 101 MMOL/L (98-107); CREATININE FOR GFR 0.94 MG/DL (0.70-1.30); GLOMERULAR FILTRATION RATE > 60.0 (>49); GLUCOSE, FASTING 100 MG/DL (74-106); SODIUM LEVEL 139 MMOL/L (136-145)
[2024-10-20 09:56] LABS: ERYTHROCYTE SEDIMENTATION RATE 49 mm/hr (0-20)
[2024-10-20 11:17] LABS: IRON (FE) 64 UG/DL (65-175); PERCENT SATURATION 23.2 % (19.7-50.0); TOTAL IRON BINDING CAPACITY 276 UG/DL (250-425)
[2024-10-20 11:20] LABS: FERRITIN 215.4 NG/ML (10.5-307.3)
== END ==
PROVIDERS: ATTEND Internal Medicine
DX: Z02.2 Encounter for examination for admission to residential institution (principal)

== ENCOUNTER → 2024-10-27 | Outpatient (REF) ==
[2024-10-27 07:30] LABS: HEMATOCRIT 26.3 % (42.0-52.0); HEMOGLOBIN 8.3 g/dl (13.5-17.5); MEAN CORPUSCULAR HEMOGLOBIN 32.8 pg (27.0-33.0); MEAN CORPUSCULAR HGB CONC 31.6 g/dl (32.0-36.5); PLATELET COUNT, AUTOMATED 179 10^3/uL (150-450); RED BLOOD COUNT 2.53 10^6/uL (4.30-6.10); WHITE BLOOD COUNT 4.3 10^3/uL (4.0-10.0)
[2024-10-27 07:51] LABS: BLOOD UREA NITROGEN 16 MG/DL (9-23); CALCIUM LEVEL 8.5 MG/DL (8.3-10.6); CARBON DIOXIDE LEVEL 30 MMOL/L (20-31); CHLORIDE LEVEL 101 MMOL/L (98-107); CREATININE FOR GFR 0.97 MG/DL (0.70-1.30); GLOMERULAR FILTRATION RATE > 60.0 (>49); GLUCOSE, FASTING 112 MG/DL (74-106); POTASSIUM SERUM 4.2 MMOL/L (3.5-5.1); SODIUM LEVEL 138 MMOL/L (136-145)
== END ==
PROVIDERS: ATTEND Physician Assistant
DX: L03.119 Cellulitis of unspecified part of limb (principal)

== ENCOUNTER → 2024-11-03 | Outpatient (REF) ==
[2024-11-03 15:46] LABS: HEMATOCRIT 30.5 % (42.0-52.0); HEMOGLOBIN 9.2 g/dl (13.5-17.5); MEAN CORPUSCULAR HEMOGLOBIN 31.7 pg (27.0-33.0); MEAN CORPUSCULAR HGB CONC 30.2 g/dl (32.0-36.5); MEAN CORPUSCULAR VOLUME 105.2 fl (80.0-96.0); PLATELET COUNT, AUTOMATED 243 10^3/uL (150-450); WHITE BLOOD COUNT 5.8 10^3/uL (4.0-10.0)
[2024-11-03 16:13] LABS: BLOOD UREA NITROGEN 17 MG/DL (9-23); CALCIUM LEVEL 8.5 MG/DL (8.3-10.6); CARBON DIOXIDE LEVEL 28 MMOL/L (20-31); CHLORIDE LEVEL 100 MMOL/L (98-107); CREATININE FOR GFR 0.96 MG/DL (0.70-1.30); GLOMERULAR FILTRATION RATE > 60.0 (>49); GLUCOSE, FASTING 136 MG/DL (74-106); POTASSIUM SERUM 4.7 MMOL/L (3.5-5.1); SODIUM LEVEL 136 MMOL/L (136-145)
== END ==
PROVIDERS: ATTEND Physician Assistant
DX: D64.9 Anemia, unspecified (principal)

== ENCOUNTER → 2024-11-17 | Outpatient (REF) ==
[2024-11-17 10:25] LABS: HEMATOCRIT 29.4 % (42.0-52.0); HEMOGLOBIN 9.4 g/dl (13.5-17.5); MEAN CORPUSCULAR HEMOGLOBIN 33.1 pg (27.0-33.0); MEAN CORPUSCULAR VOLUME 103.5 fl (80.0-96.0); PLATELET COUNT, AUTOMATED 236 10^3/uL (150-450); RED BLOOD COUNT 2.84 10^6/uL (4.30-6.10); WHITE BLOOD COUNT 5.4 10^3/uL (4.0-10.0)
[2024-11-17 11:02] LABS: BLOOD UREA NITROGEN 20 MG/DL (9-23); CALCIUM LEVEL 8.6 MG/DL (8.3-10.6); CARBON DIOXIDE LEVEL 30 MMOL/L (20-31); CHLORIDE LEVEL 97 MMOL/L (98-107); CREATININE FOR GFR 0.99 MG/DL (0.70-1.30); GLOMERULAR FILTRATION RATE > 60.0 (>49); GLUCOSE, FASTING 142 MG/DL (74-106); POTASSIUM SERUM 4.1 MMOL/L (3.5-5.1); SODIUM LEVEL 135 MMOL/L (136-145)
== END ==
PROVIDERS: ATTEND Physician Assistant
DX: E11.9 Type 2 diabetes mellitus without complications (principal)

== ENCOUNTER → 2024-11-25 | Outpatient (REF) | PROVIDERS: ATTEND Physician Assistant | DX: E11.9 Type 2 diabetes mellitus without complications (principal); Z53.8 Procedure and treatment not carried out for other reasons ==

== ENCOUNTER → 2024-11-27 | Outpatient (REF) | PROVIDERS: ATTEND Physician Assistant | DX: R55 Syncope and collapse (principal); Z53.8 Procedure and treatment not carried out for other reasons ==

== ENCOUNTER → 2024-11-28 | Outpatient (REF) ==
[2024-11-28 08:18] LABS: HEMATOCRIT 30.5 % (42.0-52.0); HEMOGLOBIN 9.5 g/dl (13.5-17.5); MEAN CORPUSCULAR HEMOGLOBIN 31.7 pg (27.0-33.0); MEAN CORPUSCULAR HGB CONC 31.1 g/dl (32.0-36.5); MEAN CORPUSCULAR VOLUME 101.7 fl (80.0-96.0); PLATELET COUNT, AUTOMATED 233 10^3/uL (150-450)
[2024-11-28 08:43] LABS: HEMOGLOBIN A1c 5.2 % (4.0-6.0)
[2024-11-28 08:50] LABS: THYROID STIMULATING HORMONE 6.162 uIU/ML (0.55-4.78); THYROXINE (T4) 7.8 UG/DL (4.5-10.9)
[2024-11-28 08:52] LABS: BLOOD UREA NITROGEN 21 MG/DL (9-23); CALCIUM LEVEL 8.8 MG/DL (8.3-10.6); CARBON DIOXIDE LEVEL 32 MMOL/L (20-31); CHLORIDE LEVEL 97 MMOL/L (98-107); CREATININE FOR GFR 0.84 MG/DL (0.70-1.30); GLOMERULAR FILTRATION RATE > 90.0 (>49); GLUCOSE, FASTING 116 MG/DL (74-106); POTASSIUM SERUM 4.2 MMOL/L (3.5-5.1); SODIUM LEVEL 136 MMOL/L (136-145)
== END ==
PROVIDERS: ATTEND Physician Assistant
DX: R55 Syncope and collapse (principal)

== ENCOUNTER → 2024-11-28 | Outpatient (REF) | PROVIDERS: ATTEND Physician Assistant | DX: R55 Syncope and collapse (principal) ==

== ENCOUNTER → 2024-12-17 | Outpatient (REF) ==
[~2024-12-17] MED LIST changes: -FLOM0.4C39 PO; +TAMS-18 PO
== END ==
PROVIDERS: ATTEND Physician Assistant
DX: E11.9 Type 2 diabetes mellitus without complications (principal); Z53.8 Procedure and treatment not carried out for other reasons

== ENCOUNTER → 2024-12-26 | Outpatient (CLI) | payer MEDICARE, BC | LOC: M RAD 16:37 | PROVIDERS: ATTEND Nurse Practitioner Family | DX: C80.1 Malignant (primary) neoplasm, unspecified (principal) ==

== ENCOUNTER → 2025-04-14 | Outpatient (REF) | payer MEDICARE, BC ==
[~2025-04-14] MED LIST changes: +SENN-225 PO; -SENO8.6T5 PO
== END ==
LOC: M SFHCWOUN 14:30
PROVIDERS: ATTEND Physician Assistant
DX: L97.512 Non-pressure chronic ulcer of other part of right foot with fat layer exposed (principal)

== ENCOUNTER 2025-07-30 10:34 | Emergency (ER) | payer MEDICARE, BC ==
[~2025-07-30] VITALS: Ht 180.3 cm; Wt 165.9 kg
[2025-07-30 11:14] LABS: VENOUS BASE EXCESS 2.1 (-2.0-2.0); VENOUS HCO3 28.7 MMOL/L (23.0-27.0); VENOUS O2 SATURATION 76.6 % (60.0-80.0); VENOUS PARTIAL PRESSURE CO2 54.6 mmHg (38.0-50.0); VENOUS PARTIAL PRESSURE O2 47.9 mmHg (30.0-50.0); VENOUS PH 7.338 UNITS (7.330-7.430); VENOUS STANDARD HCO3 25.9 MMOL/L; VENOUS TOTAL CO2 30.3 MMOL/L (24.0-28.0)
[2025-07-30 11:24] LABS: BASO # 0.0 10^3/uL (0.0-0.2); BASO % 0.3 % (0.0-1.0); EOS # 0.1 10^3/uL (0.0-0.5); EOS % 1.2 % (0.0-3.0); LYMPH # 1.5 10^3/uL (1.5-5.0); LYMPH % 21.8 % (24.0-44.0); MONO # 1.4 10^3/uL (0.0-0.8); MONO % 20.1 % (2.0-8.0); NEUTROPHILS # 3.5 10^3/uL (1.5-8.5); NEUTROPHILS % 51.7 % (36.0-66.0); PLATELET COUNT, AUTOMATED 243 10^3/uL (150-450)
[2025-07-30 11:41] LABS: INR 1.14
[2025-07-30 11:45] LABS: ALT/SGPT 13 U/L (7.0-40); AST/SGOT 23 U/L (<34); CALCIUM LEVEL 8.0 MG/DL (8.3-10.6); CARBON DIOXIDE LEVEL 30 MMOL/L (20-31); CHLORIDE LEVEL 97 MMOL/L (98-107); CREATININE FOR GFR 0.91 MG/DL (0.70-1.30); GLOMERULAR FILTRATION RATE > 90.0 (>49); POTASSIUM SERUM 4.6 MMOL/L (3.5-5.1); SODIUM LEVEL 134 MMOL/L (136-145)
[2025-07-30] MEDS ORDERED: ISOVUE-370 76% 100 ML VIAL As Ordered ONE (13:03)
[2025-07-30] MEDS ORDERED: IMIQ1CRE6 TOP (13:08)
[2025-07-30] MEDS ORDERED: SEMA1PEN2 SQ (13:08)
[2025-07-30] MEDS ORDERED: TRAZ150T90 PO (13:08)
[2025-07-30] MEDS ORDERED: HOME MED LIST COMPLETE! XX SCH (13:10)
[2025-07-30] MEDS: IPRATROPIUM 0.5 MG/ALBUTEROL 2.5 MG INH SOL UD 3 ML NEB ONE (14:08)
[2025-07-30] MEDS ORDERED: LEVO1TAB40 PO (17:33)
[2025-07-30] MEDS: LevoFLOXacin IV 750 MG in IV 1 EA IV ONE (17:42)
[2025-07-30 18:01] VITALS: BP 134/63; TEMP 98.4; O2SAT 92
== END 2025-07-30 18:29 | disposition home or self-care (01) ==
LOC: EDBD 10:34 → M ED 10:34
DX: J96.01 Acute respiratory failure with hypoxia (principal); I44.0 Atrioventricular block, first degree; K80.20 Calculus of gallbladder without cholecystitis without obstruction; I48.91 Unspecified atrial fibrillation; E11.9 Type 2 diabetes mellitus without complications; I10 Essential (primary) hypertension; Z87.891 Personal history of nicotine dependence; Z88.8 Allergy status to other drugs, medicaments and biological substances; Z79.899 Other long term (current) drug therapy; Z79.4 Long term (current) use of insulin
CPT/HCPCS: 71045; 71275; 74177; 80048; 80076; 82803; 83880; 84145; 85025; 85610; 87040; 87486; 87581; 87633; 87798; 93005; 93041; 94760; 96374; 99285; J1956; Q9967